=== PATIENT | male | born 1955 | race African-American/Black ===

== ENCOUNTER 2018-08-25 05:06 | Emergency (ER) | payer MEDICARE, OTHER ==
[~2018-08-25] VITALS: Ht 188 cm; Wt 86.4 kg
[2018-08-25] MEDS ORDERED: LASIX20 MG (05:12)
[2018-08-25] MEDS ORDERED: LYRICA75 MG (05:13)
[2018-08-25] MEDS ORDERED: ACETAMINOPHEN325 MG (05:13)
[2018-08-25] MEDS ORDERED: SIMETHICON40 MG/0.6 (05:13)
[2018-08-25] MEDS ORDERED: COREG25 MG (05:14)
[2018-08-25] MEDS ORDERED: NOVOLOG100 UNIT/1 (05:14)
[2018-08-25] MEDS ORDERED: CYMBALTA30 MG (05:14)
[2018-08-25] MEDS ORDERED: BAYER CHEWABLE81 MG (05:14)
[2018-08-25 05:15] VITALS: Ht 188 cm; Wt 86.4 kg
[2018-08-25] MEDS ORDERED: LANTUS (05:15)
[2018-08-25 05:36] LABS: BASOPHILS 0.1 % (0-2); EOSINOPHILS 2.2 % (0-7); HEMATOCRIT 38.4 % (42.0-54.0); HEMOGLOBIN 12.9 g/dL (13.5-17.5); IMMATURE GRANULOCYTES 0.4 % (0-5); LYMPHOCYTES 28.1 % (15-50); MCH 30.6 pg (26.0-34.0); MCHC 33.6 g/dL (31.0-37.0); MEAN PLATELET VOLUME 11.3 fL (7.4-10.4); MONOCYTES 8.9 % (2-11); NEUTROPHILS 60.3 % (40-80); PLATELET COUNT 194 10x3/uL (130-400); RBC 4.22 10x6/uL (4.20-6.10); RDW 13.2 % (11.5-14.5); WBC 10.1 10x3/uL (4.8-10.8)
[2018-08-25 06:05] LABS: ALKALINE PHOSPHATASE 247 U/L (46-116); ALT (SGPT) 20 U/L (10-68); BILIRUBIN - TOTAL 0.41 mg/dL (0.2-1.3); CALC OSMOLALITY 285 mosm/kg (275-300); CALCIUM 8.2 mg/dL (8.5-10.1); CARBON DIOXIDE 20.5 mmol/L (21.0-32.0); CHLORIDE - SERUM 104 mmol/L (98-107); GLUCOSE 258 mg/dL (74-106); POTASSIUM - SERUM 4.4 mmol/L (3.5-5.1); SODIUM 137 mmol/L (136-145); UREA NITROGEN 22 mg/dL (7-18); eGFR NON AFRICAN AMERICAN 36 mL/min (90-120)
[2018-08-25 06:20] LABS: CKMB 15.4 U/L (0.0-3.6); CREATINE KINASE 627 UL (21-232); LIPASE 209 U/L (73-393); PRO BNP 6890 pg/mL (0-125)
[2018-08-25 06:22] LABS: TROPONIN-I 0.129 ng/mL (0.000-0.060)
[2018-08-25 07:43] LABS: APPEARANCE CLEAR (CLEAR); BILIRUBIN NEGATIVE (NEGATIVE); COLOR YELLOW (YELLOW); GLUCOSE 100 mg/dL (NEGATIVE); KETONE NEGATIVE (NEGATIVE); NITRITE NEGATIVE (NEGATIVE); PROTEIN 3+ mg/dL (NEGATIVE); SPECIFIC GRAVITY 1.015 (1.005-1.020); UROBILINOGEN NORMAL (NORMAL)
[2018-08-25 07:44] LABS: UDS - AMPHET NEGATIVE QUAL (NEGATIVE); UDS - BARB NEGATIVE QUAL (NEGATIVE); UDS - BENZO NEGATIVE QUAL (NEGATIVE); UDS - COCAINE POSITIVE QUAL (NEGATIVE); UDS - OPIATE NEGATIVE QUAL (NEGATIVE); UDS - PCP NEGATIVE QUAL (NEGATIVE); UDS - THC NEGATIVE QUAL (NEGATIVE)
[2018-08-25 07:47] LABS: BACTERIA FEW /hpf (NONE SEEN); EPITHELIAL CELLS 0-5 /hpf (0-5); RED CELLS - URINE 0-5 /hpf (0-5); WHITE CELLS - URINE 0-5 /hpf (0-5)
[2018-08-25 09:17] VITALS: BP 146/95
== END 2018-08-25 09:22 | disposition other institution (70) ==
LOC: D.ER 05:06
PROVIDERS: Family Medicine
DX: I50.9 Heart failure, unspecified (principal); E11.65 Type 2 diabetes mellitus with hyperglycemia; Z79.4 Long term (current) use of insulin; Z91.14 Patient's other noncompliance with medication regimen; N28.9 Disorder of kidney and ureter, unspecified; R11.0 Nausea; I44.0 Atrioventricular block, first degree

== ENCOUNTER 2018-10-13 09:39 | Emergency (ER) | payer OTHER ==
[~2018-10-13] VITALS: Ht 188 cm; Wt 72.7 kg
--- NOTE | ~2018-10-13 | MORECARE ---
CASE MANAGEMENT DISCHARGE SUMMARY PATIENT: YULIET PADILLA UNIT: [id number] ADM DATE: AGE: 63 : 53 SEX: M ROOM/BED: AUTHOR: FIDEL LAWRENCE PHYSICIAN: REFERRING PHYSICIAN: LEANDRO RAPHAEL MD DATE OF SERVICE: 10/13/18 Discharge Plan Patient Name: YULIET PADILLA Facility: [facility]:[place] : 1955 Planned Disposition: Anticipated Discharge Date: Discharge Date: Expected LOS: 0 Initial Reviewer: [email or web address] Initial Review Date: 10/13/2018 Generated: 10/13/18 1:39 pm Patient Name: YULIET PADILLA Page 53495 at 1240 All edits/amendments must be made on the electronic document DICTATION DATE: 10/13/18 1239 CANCER PROGRAM COORDINATOR: VICKI 10/13/18 1239 RPT#: [id number] DC DATE: STATUS: REG ER [facility] [address] [place] [address] END OF REPORT
[~2018-10-13 09:39] MED LIST: ACETAMINOPHEN325 MG; BAYER CHEWABLE81 MG; COREG25 MG; CYMBALTA30 MG; LANTUS; LASIX20 MG; LEVOFLOXACIN500 MG PO; LYRICA75 MG; NORVASC5 MG PO; NOVOLOG100 UNIT/1; PLAVIX75 MG PO; SIMETHICON40 MG/0.6
[2018-10-13 09:45] VITALS: Ht 188 cm; Wt 72.7 kg
[2018-10-13 10:41] LABS: BASOPHILS 0.2 % (0-2); EOSINOPHILS 0.6 % (0-7); HEMATOCRIT 29.1 % (42.0-54.0); HEMOGLOBIN 9.5 g/dL (13.5-17.5); LYMPHOCYTES 15.2 % (15-50); MCH 24.7 pg (26.0-34.0); MCHC 32.6 g/dL (31.0-37.0); MCV 75.8 fL (80.0-100.0); MEAN PLATELET VOLUME 9.1 fL (7.4-10.4); MONOCYTES 5.6 % (2-11); NEUTROPHILS 78.4 % (40-80); RBC 3.84 10x6/uL (4.20-6.10); RDW 22.8 % (11.5-14.5); WBC 6.3 10x3/uL (4.8-10.8)
[2018-10-13 10:42] LABS: PLATELET COUNT 229 10x3/uL (130-400)
[2018-10-13 10:46] LABS: APTT 28.5 SECONDS (22.8-39.4); INR 1.18 (0.85-1.17); PROTIME 14.5 SECONDS (11.6-15.0)
[2018-10-13 10:50] LABS: ALBUMIN 1.9 g/dL (3.4-5.0); ALKALINE PHOSPHATASE 235 U/L (46-116); ALT (SGPT) 16 U/L (10-68); BILIRUBIN - TOTAL 0.98 mg/dL (0.2-1.3); CALC OSMOLALITY 279 mosm/kg (275-300); CALCIUM 7.8 mg/dL (8.5-10.1); CARBON DIOXIDE 22.8 mmol/L (21.0-32.0); CHLORIDE - SERUM 104 mmol/L (98-107); CREATININE - SERUM 1.7 mg/dL (0.6-1.3); GLUCOSE 138 mg/dL (74-106); POTASSIUM - SERUM 3.9 mmol/L (3.5-5.1); PROTEIN - SERUM 6.3 g/dL (6.4-8.2); SODIUM 137 mmol/L (136-145); UREA NITROGEN 23 mg/dL (7-18); eGFR NON AFRICAN AMERICAN 43 mL/min (90-120)
[2018-10-13 11:06] LABS: AMYLASE - SERUM 49 U/L (25-115); CKMB 10.5 U/L (0.0-3.6); CREATINE KINASE 637 UL (21-232); LIPASE 104 U/L (73-393); MAGNESIUM - SERUM 1.8 mg/dL (1.8-2.4)
[2018-10-13 11:08] LABS: TROPONIN-I 0.161 ng/mL (0.000-0.060)
[2018-10-13 14:59] LABS: CKMB 12.8 U/L (0.0-3.6); CREATINE KINASE 661 UL (21-232)
[2018-10-13 15:03] LABS: TROPONIN-I 0.151 ng/mL (0.000-0.060)
[2018-10-13 18:12] LABS: APPEARANCE CLEAR (CLEAR); BILIRUBIN NEGATIVE (NEGATIVE); COLOR YELLOW (YELLOW); GLUCOSE 100 mg/dL (NEGATIVE); KETONE NEGATIVE (NEGATIVE); NITRITE NEGATIVE (NEGATIVE); PROTEIN 3+ mg/dL (NEGATIVE); SPECIFIC GRAVITY 1.015 (1.005-1.020); UROBILINOGEN NORMAL (NORMAL)
[2018-10-13 18:14] LABS: WHITE CELLS - URINE OCC /hpf (0-5)
[2018-10-13 18:15] LABS: BACTERIA FEW /hpf (NONE SEEN)
[2018-10-13 18:28] LABS: UDS - AMPHET NEGATIVE QUAL (NEGATIVE); UDS - BARB NEGATIVE QUAL (NEGATIVE); UDS - BENZO NEGATIVE QUAL (NEGATIVE); UDS - COCAINE POSITIVE QUAL (NEGATIVE); UDS - OPIATE NEGATIVE QUAL (NEGATIVE); UDS - PCP NEGATIVE QUAL (NEGATIVE); UDS - THC NEGATIVE QUAL (NEGATIVE)
[2018-10-13 20:01] VITALS: BP 164/95
== END 2018-10-13 20:04 | disposition other institution (70) ==
LOC: D.ER 09:39
PROVIDERS: Family Medicine
DX: J18.9 Pneumonia, unspecified organism (principal); F10.129 Alcohol abuse with intoxication, unspecified; I25.10 Atherosclerotic heart disease of native coronary artery without angina pectoris; R07.9 Chest pain, unspecified; F15.10 Other stimulant abuse, uncomplicated; R51 Headache; Z86.73 Personal history of transient ischemic attack (TIA), and cerebral infarction without residual deficits; E11.9 Type 2 diabetes mellitus without complications; Z86.19 Personal history of other infectious and parasitic diseases; K74.60 Unspecified cirrhosis of liver; I50.9 Heart failure, unspecified; J44.9 Chronic obstructive pulmonary disease, unspecified; I44.0 Atrioventricular block, first degree

== ENCOUNTER 2018-11-01 08:47 | Emergency (ER) | payer OTHER ==
[~2018-11-01] VITALS: Ht 188 cm; Wt 88.6 kg
[2018-11-01 08:52] VITALS: Ht 188 cm; Wt 88.6 kg
[2018-11-01 09:09] LABS: BASOPHILS 0.3 % (0-2); EOSINOPHILS 1.1 % (0-7); HEMOGLOBIN 9.3 g/dL (13.5-17.5); IMMATURE GRANULOCYTES 0.5 % (0-5); LYMPHOCYTES 16.7 % (15-50); MCH 25.3 pg (26.0-34.0); MCHC 33.2 g/dL (31.0-37.0); MCV 76.1 fL (80.0-100.0); MEAN PLATELET VOLUME 9.6 fL (7.4-10.4); MONOCYTES 12.2 % (2-11); NEUTROPHILS 69.2 % (40-80); RBC 3.68 10x6/uL (4.20-6.10); RDW 19.7 % (11.5-14.5); WBC 6.7 10x3/uL (4.8-10.8)
[2018-11-01 09:17] LABS: PLATELET COUNT 292 10x3/uL (130-400)
[2018-11-01 09:24] LABS: ALBUMIN 2.3 g/dL (3.4-5.0); ALKALINE PHOSPHATASE 290 U/L (46-116); ALT (SGPT) 19 U/L (10-68); BILIRUBIN - TOTAL 0.65 mg/dL (0.2-1.3); CALC OSMOLALITY 283 mosm/kg (275-300); CALCIUM 8.2 mg/dL (8.5-10.1); CARBON DIOXIDE 19.6 mmol/L (21.0-32.0); CHLORIDE - SERUM 103 mmol/L (98-107); CREATININE - SERUM 1.9 mg/dL (0.6-1.3); PROTEIN - SERUM 7.5 g/dL (6.4-8.2); SODIUM 134 mmol/L (136-145); UREA NITROGEN 30 mg/dL (7-18); eGFR NON AFRICAN AMERICAN 38 mL/min (90-120)
[2018-11-01 09:25] LABS: APTT 31.4 SECONDS (22.8-39.4); INR 1.2 (0.85-1.17); PROTIME 14.7 SECONDS (11.6-15.0)
[2018-11-01 09:26] LABS: GLUCOSE 275 mg/dL (74-106); POTASSIUM - SERUM 4.9 mmol/L (3.5-5.1)
[2018-11-01 09:46] LABS: CREATINE KINASE 397 UL (21-232); MAGNESIUM - SERUM 1.9 mg/dL (1.8-2.4)
[2018-11-01 09:48] LABS: TROPONIN-I 0.073 ng/mL (0.000-0.060)
[2018-11-01 10:45] LABS: APPEARANCE HAZY (CLEAR); BILIRUBIN NEGATIVE (NEGATIVE); COLOR YELLOW (YELLOW); GLUCOSE 250 mg/dL (NEGATIVE); KETONE NEGATIVE (NEGATIVE); NITRITE NEGATIVE (NEGATIVE); PROTEIN 3+ mg/dL (NEGATIVE); UROBILINOGEN NORMAL (NORMAL)
[2018-11-01 10:49] LABS: AMORPHOUS SEDIMENT >1+ /lpf (NONE SEEN); BACTERIA MANY /hpf (NONE SEEN); EPITHELIAL CELLS 0-5 /hpf (0-5); MUCUS <1+ /lpf (NONE SEEN); WHITE CELLS - URINE 0-5 /hpf (0-5)
[2018-11-01 10:56] LABS: UDS - AMPHET NEGATIVE QUAL (NEGATIVE); UDS - BARB NEGATIVE QUAL (NEGATIVE); UDS - BENZO NEGATIVE QUAL (NEGATIVE); UDS - COCAINE NEGATIVE QUAL (NEGATIVE); UDS - OPIATE NEGATIVE QUAL (NEGATIVE); UDS - PCP NEGATIVE QUAL (NEGATIVE); UDS - THC NEGATIVE QUAL (NEGATIVE)
[2018-11-01 13:31] VITALS: BP 158/102
== END 2018-11-01 14:45 | disposition other institution (70) ==
LOC: D.ER 08:47
PROVIDERS: Family Medicine
DX: R07.9 Chest pain, unspecified (principal); I50.9 Heart failure, unspecified; Z86.73 Personal history of transient ischemic attack (TIA), and cerebral infarction without residual deficits; E11.9 Type 2 diabetes mellitus without complications; J44.9 Chronic obstructive pulmonary disease, unspecified

== ENCOUNTER 2018-11-28 06:30 | Emergency (ER) | payer OTHER ==
[~2018-11-28] VITALS: Ht 188 cm; Wt 88.6 kg
[2018-11-28 06:31] VITALS: Ht 188 cm; Wt 88.6 kg
[2018-11-28 07:14] LABS: ALBUMIN 2.7 g/dL (3.4-5.0); ALKALINE PHOSPHATASE 311 U/L (46-116); ALT (SGPT) 15 U/L (10-68); BILIRUBIN - TOTAL 2.67 mg/dL (0.2-1.3); CALC OSMOLALITY 278 mosm/kg (275-300); CALCIUM 8.7 mg/dL (8.5-10.1); CARBON DIOXIDE 20.5 mmol/L (21.0-32.0); CHLORIDE - SERUM 100 mmol/L (98-107); GLUCOSE 107 mg/dL (74-106); POTASSIUM - SERUM 3.3 mmol/L (3.5-5.1); PROTEIN - SERUM 8.2 g/dL (6.4-8.2); SODIUM 135 mmol/L (136-145); UREA NITROGEN 39 mg/dL (7-18); eGFR NON AFRICAN AMERICAN 36 mL/min (90-120)
[2018-11-28 07:17] LABS: APTT 32.3 SECONDS (22.8-39.4); INR 1.19 (0.85-1.17); PROTIME 14.6 SECONDS (11.6-15.0)
[2018-11-28 07:20] LABS: BASOPHILS 0.2 % (0-2); EOSINOPHILS 0.8 % (0-7); HEMATOCRIT 29.6 % (42.0-54.0); HEMOGLOBIN 9.9 g/dL (13.5-17.5); IMMATURE GRANULOCYTES 0.2 % (0-5); LYMPHOCYTES 14.3 % (15-50); MCH 25.3 pg (26.0-34.0); MCHC 33.4 g/dL (31.0-37.0); MCV 75.7 fL (80.0-100.0); NEUTROPHILS 71.5 % (40-80); PLATELET COUNT 320 10x3/uL (130-400); RBC 3.91 10x6/uL (4.20-6.10); RDW 18.9 % (11.5-14.5); WBC 6.6 10x3/uL (4.8-10.8)
[2018-11-28 07:29] LABS: CKMB 12.1 U/L (0.0-3.6); CREATINE KINASE 609 UL (21-232)
[2018-11-28 07:33] LABS: TROPONIN-I 0.101 ng/mL (0.000-0.060)
[2018-11-28 08:37] LABS: MAGNESIUM - SERUM 1.8 mg/dL (1.8-2.4)
[2018-11-28 13:37] VITALS: BP 151/109
== END 2018-11-28 13:30 | disposition other institution (70) ==
LOC: D.ER 06:30
PROVIDERS: Emergency Medicine; Family Medicine
DX: N28.9 Disorder of kidney and ureter, unspecified (principal); E86.0 Dehydration; D64.9 Anemia, unspecified; R79.89 Other specified abnormal findings of blood chemistry; Z86.73 Personal history of transient ischemic attack (TIA), and cerebral infarction without residual deficits; E11.9 Type 2 diabetes mellitus without complications; I50.9 Heart failure, unspecified; J44.9 Chronic obstructive pulmonary disease, unspecified

== ENCOUNTER 2019-01-24 05:21 | Emergency (ER) | payer OTHER ==
[~2019-01-24] VITALS: Ht 188 cm; Wt 81.8 kg
[2019-01-24 05:32] VITALS: Ht 188 cm; Wt 81.8 kg
[2019-01-24] MEDS ORDERED: HYDRALAZINE HCL25 MG PO (05:33)
[2019-01-24 06:23] LABS: ALBUMIN 2.4 g/dL (3.4-5.0); ALKALINE PHOSPHATASE 332 U/L (46-116); ALT (SGPT) 11 U/L (10-68); BILIRUBIN - TOTAL 2.16 mg/dL (0.2-1.3); CALC OSMOLALITY 280 mosm/kg (275-300); CALCIUM 8.2 mg/dL (8.5-10.1); CARBON DIOXIDE 23.1 mmol/L (21.0-32.0); CHLORIDE - SERUM 98 mmol/L (98-107); CREATININE - SERUM 2.2 mg/dL (0.6-1.3); POTASSIUM - SERUM 3.2 mmol/L (3.5-5.1); PROTEIN - SERUM 8.5 g/dL (6.4-8.2); SODIUM 134 mmol/L (136-145); UREA NITROGEN 33 mg/dL (7-18); eGFR NON AFRICAN AMERICAN 32 mL/min (90-120)
[2019-01-24 06:24] LABS: GLUCOSE 199 mg/dL (74-106)
[2019-01-24 06:40] LABS: CKMB 9.5 U/L (0.0-3.6); CREATINE KINASE 605 UL (21-232); MAGNESIUM - SERUM 1.6 mg/dL (1.8-2.4)
[2019-01-24 06:42] LABS: TROPONIN-I 0.173 ng/mL (0.000-0.060)
[2019-01-24 06:51] LABS: BASOPHILS 0.2 % (0-2); EOSINOPHILS 0.2 % (0-7); HEMATOCRIT 34.9 % (42.0-54.0); HEMOGLOBIN 11.7 g/dL (13.5-17.5); IMMATURE GRANULOCYTES 0.3 % (0-5); LYMPHOCYTES 5.7 % (15-50); MCH 25.7 pg (26.0-34.0); MCHC 33.5 g/dL (31.0-37.0); MCV 76.7 fL (80.0-100.0); MEAN PLATELET VOLUME 10.3 fL (7.4-10.4); MONOCYTES 8.7 % (2-11); NEUTROPHILS 84.9 % (40-80); RBC 4.55 10x6/uL (4.20-6.10); RDW 20.1 % (11.5-14.5); WBC 10.4 10x3/uL (4.8-10.8)
[2019-01-24 06:52] LABS: PLATELET COUNT 250 10x3/uL (130-400)
[2019-01-24 07:09] LABS: APTT 20.2 SECONDS (22.8-39.4); INR 1.06 (0.85-1.17); PROTIME 13.3 SECONDS (11.6-15.0)
[2019-01-24 11:34] VITALS: BP 181/117
== END 2019-01-24 12:18 | disposition other institution (70) ==
LOC: D.ER 05:21
PROVIDERS: Family Medicine
DX: J06.9 Acute upper respiratory infection, unspecified (principal); I25.10 Atherosclerotic heart disease of native coronary artery without angina pectoris; I10 Essential (primary) hypertension; I21.4 Non-ST elevation (NSTEMI) myocardial infarction

== ENCOUNTER 2019-03-02 19:46 | Inpatient (IN) | payer OTHER, MEDICARE ==
--- NOTE | ~2019-03-02 | HEMODYNAMI ---
PATIENT:YULIET PADILLA MEDICAL RECORD: [id number] : 53 [address] [id number] ADMISSION DATE: 03/03/19 Generatedon:03/05/201915:45 Patient name: YULIET PADILLA Patient #: [id number] SSN: : 1955 Date of study: 03/05/2019 Page: Of Hemodynamic Procedure Report Patient Data Patient Demographics Procedure consent was obtained First Name: YULIET Gender: Male Last Name: VALERIE : 1955 Patient #: [id number] Age: 63 year(s) Race: Black Additional ID: [id number] Contact details Address: [address] [place] [address] State: [place] City: [facility] Zip code: [address] Past Medical History Allergies: No known allergies Admission Admission Data Admission Date: 03/03/2019 Admission Time: 15:41 Room #: [facility] Lab Results Lab Result Date: 03/05/2019 Lab Result Time: 0:00 Biochemistry Name Units Result Min Max BUN mg/dl 33 --(----)-* 7 18 Creatinine mg/dl 2.3 --(----)-* 0.6 1.3 CBC Name Units Result Min Max Hematocrit % 29.8 *-(----)-- 42 54 Hemoglobin g/dl 10 *-(----)-- 13.5 17.5 Procedure Procedure Types Cath Procedure Diagnostic Procedure C LH w/Coronaries Sedation Charges Moderate Sedation up to 15 minutes Procedure Description Procedure Date Procedure Date: 03/05/2019 Procedure Start Time: 15:14 Procedure End Time: 15:44 Procedure Staff Name Function Sandeep Somers MD Performing Physician Megan Almodovar RT Monitor Eliazar Ramirez RT Scrub Ruby Ryan RN Nurse Van Hill RT Preparator Procedure Data Cath Procedure Fluoroscopy Diagnostic fluoroscopy Total fluoroscopy Time: 7 time: 7 min min Diagnostic fluoroscopy Total fluoroscopy dose: 630 dose: 630 mGy mGy Contrast Material Contrast Material Type Amount (ml) Isovue 300 74 Entry Location Entry Primary Successful Side Size Upsize Upsize Entry Closure Coker ccessful Closure Location (Fr) 1 (Fr) 2 (Fr) Remarks Device Remarks Radial Right 6 Fr Mechanical artery Short Compression Femoral Right 5 Fr Exoseal artery Estimated blood loss: 10 ml Diagnostic catheters Device Type Used For End Catheter Placement DIAGNOSTIC Hackberry 110cm 5 Procedure Fr catheter ([id number]) MULTIPACK JL 4.0 5Fr Procedure catheter DIAGNOSTIC JL 5 5Fr Procedure catheter ([id number]) MULTIPACK 3DRC 5Fr Procedure catheter MULTIPACK Pigtail 5 Fr Procedure catheter Procedure Complications No complications Procedure Medications Medication Administration Route Dosage 0.9% NaCl I.V. 100 ml/hr Oxygen etCO2 Nasal cannula 2 l/min Lidocaine 2% added to field 20 Heparin Flush Bag added to field 2 bags (1000units/500ml NS) Radial Cocktail added to field 1 syringe (Verapomil 2mg/Nitro 400mcg/Heparin 1500units) Versed I.V. 2 mg Fentanyl I.V. 50 mcg Fentanyl I.V. 50 mcg Hemodynamics Rest HGB: 10 (g/dl) Heart Rate: 73 (bpm) Pressure Samples Time Site Value (mmHg) Purpose Heart Use Rate(bpm) 15:32 LV 137/26,39 EDP 67 15:32 LV 126/2,9 Snapshot 67 Gradients Valve Time Site Site Mean SEP/DFP Peak To Heart Use 1 2 (mmHg) (sec/min) Peak Rate (mmHg) (bpm) Aortic 15:32 LV AO 67 Snapshots Pre Cath Intra NCS Post Cath Vital Signs Time Heart Resp SPO2 etCO2 NIBP (mmHg) Rhythm Pain Sedation Rate (ipm) (%) (mmHg) Status Level (bpm) 15:07:26 72 27 100 26 164/108(145) NSR 0 (11) 10(A) , No pain 15:11:50 73 28 100 16.4 160/119(150) NSR 0 (11) 10(A) , No pain 15:16:16 71 15 98 26.1 171/87(135) NSR 0 (11) 9(A) , No pain 15:20:32 68 12 99 30.5 152/96(125) NSR 0 (11) 9(A) , No pain 15:24:44 68 12 98 32.7 138/104(120) NSR 0 (11) 9(A) , No pain 15:28:58 67 12 97 33.5 150/99(119) NSR 0 (11) 9(A) , No pain 15:33:18 67 12 99 32.8 147/94(114) NSR 0 (11) 9(A) , No pain 15:37:34 66 12 99 30.5 151/101(123) NSR 0 (11) 10(A) , No pain 15:41:55 66 12 94 24.5 147/106(122) NSR 0 (11) 10(A) , No pain Medications Time Medication Route Dose Verified Delivered Reason Notes E ffectiveness by by 15:08:41 Fentanyl I.V. 50 mcg Sandeep Ruby for Yonis Connor sedation MD GARCIA 15:08:44 Versed I.V. 2 mg Sandeep Ruby for Yonis Connor sedation MD GARCIA 15:12:56 0.9% NaCl I.V. 100 Sandeep Ruby used for ml/hr Yonis Connor procedure MD GARCIA 15:13:03 Oxygen etCO2 2 l/min Sandeep Ruby used for Nasal Yonis Connor procedure cannula MD GARCIA 15:13:08 Lidocaine 2% added 20ml Sandeep Hopkins for local to vial Yonis Yonis anesthetic field MD CASTRO 15:13:13 Heparin Flush added 2 bags [facility]ep Hopkins [facility] ([facility]500[facility] field MD CASTRO NS) 15:13:20 Radial Cocktail added 1 Sandeep Hopkins used for ([facility]/Nitro field MD CASTRO 400mcg/Heparin 1500units) 15:13:49 Fentanyl I.V. 50 mcg Sandeep Ruby for Yonis Connor sedation MD GARCIArcis Log Time Note 14:35:06 [place] RT(R) sent for patient. Start room use. 14:40:01 Signed procedure consent form obtained from patient. 14:40:03 Diagnostic Cath status Elective 14:40:07 Time tracking: Regular hours (M-F 7:00 - 5:00) 14:40:11 Plan of Care:Hemodynamics will remain stable., Cardiac rhythm will remain stable., Comfort level will be maintained., Respiratory function will remain adequate., Patient/ family verbilizes understanding of procedure., Procedure tolerated without complication., Recovers from procedure without complications.. 14:40:22 H&P Date Dictated: 03/03/2019 Within 30 days and on chart., H&P Addendum completed by physician on day of procedure. (MUST COMPLETE FOR ALL OUTPATIENTS). 14:40:37 Patient allergic to No known allergies 14:41:54 Lab Result : Creatinine 2.3 mg/dl 14:41:54 Lab Result : BUN 33 mg/dl 14:41:54 Lab Result : Hemoglobin 10 g/dl 14:41:54 Lab Result : Hematocrit 29.8 % 14:57:37 Patient received from Med II to CCL 1 Alert and oriented. Tansferred to table in Supine position. 14:57:38 Warm blankets applied, and michelle hugger turned on for patient comfort. 14:57:38 Correct patient and procedure confirmed by team. 14:57:39 ECG and BP/O2 sat monitors applied to patient. 15:06:03 Vital chart was started 15:06:04 Baseline sample Acquired. 15:06:07 Rhythm: sinus rhythm 15:06:09 Full Disclosure recording started 15:06:10 Pre-procedure instructions explained to patient. 15:06:11 Pre-op teaching completed and patient verbalized understanding. 15:06:14 Family unavailable. 15:06:16 Patient NPO since Midnight. 15:06:18 Is the patient allergic to Iodine/contrast media? No. 15:06:22 Was the patient premedicated? No 15:06:39 Is patient on blood thinner?No 15:06:41 Patient diabetic? No. 15:06:45 ----Pre-sedation anethsthesia assessment.---- 15:06:47 Previous problem with sedation/anesthesia? No ? 15:06:48 Snore? Yes 15:06:50 Sleep apnea? No 15:06:51 Deviated septum? No 15:06:53 Opens mouth fully? Yes 15:06:54 Sticks out tongue? Yes 15:06:56 Airway obstruction? No ? 15:06:58 Dentures? No ? 15:07:00 Pre procedure: right dorsailis pedis pulse 2+ Normal; easily identifiable; not easily obliterated 15:07:05 Modified Laci's test Ulnar < 7 seconds 15:07:07 Patient pain scale 0/10 ?. 15:07:12 IV patent on arrival in left antecubital with 0.9% NaCl at O. 15:07:14 Lab results completed and on chart. 15:07:18 Right Radial & Right Groin area was prepped with chlora-prep and draped in sterile fashion 15:07:18 Alarms reviewed by R. N. 15:07:19 Sharps counted by scrub and verified by R.N. 15:07:20 Physician arrived 15:07:21 --------ALL STOP TIME OUT------ 15:07:21 Final Timeout: patient, procedure, and site verified with staff and physician. All members of the team are in agreement. 15:07:22 Right Radial & Right Groin site verified by team. 15:07:28 Maximum allowable Isovue 300 dose 300ml. Physician notified. (300ml for normal creatinines. For patients with creatinine of 1.7 or higher multiply weight(kg) x 5 divided by creatinine.) 15:07:32 Fire Safety Assessment: A--An alcohol-based skin anteseptic being used preoperatively., C--Open oxygen or nitrous oxide is being used., D--An ESU, laser, or fiber-optic light is being used. 15:07:36 Physical assessment completed. ASA score P 3 - A patient with severe systemic disease as per Sandeep Somers MD. 15:07:39 Sedation plan: IV Moderate Sedation Medication:Versed, Fentanyl 15:08:41 Fentanyl 50 mcg I.V. was administered by Ruby Ryan RN; for sedation; 15:08:44 Versed 2 mg I.V. was administered by Ruby Ryan RN; for sedation; 15:09:36 Use device set Radial Dx or PCI 15:09:38 ACIST Syringe (79904) opened to sterile field. 15:09:39 Bag Decanter () opened to sterile field. 15:09:40 ACIST Hand Control (30599) opened to sterile field. 15:09:40 ACIST Manifold (57492) opened to sterile field. 15:09:41 Tegaderm 4 x 4 (1626W) opened to sterile field. 15:09:42 Medline Cath Pack ([id number]) opened to sterile field. 15:09:43 DIAGNOSTIC WIRE .035 260cm J wire (112379) opened to sterile field. 15:09:43 MBrace Wrist Support (614453808) opened to sterile field. 15:09:44 SHEATH 6FR Slender (22-7474) opened to sterile field. 15:12:56 0.9% NaCl 100 ml/hr I.V. was administered by Ruby Ryan RN; used for procedure; 15:13:03 Oxygen 2 l/min etCO2 Nasal cannula was administered by Ruby Ryan RN; used for procedure; 15:13:08 Lidocaine 2% 20ml vial added to field was administered by Sandeep Somers MD; for local anesthetic; 15:13:13 Heparin Flush Bag (1000units/500ml NS) 2 bags added to field was administered by Sandeep Somers MD; used for procedure; 15:13:20 Radial Cocktail (Verapomil 2mg/Nitro 400mcg/Heparin 1500units) 1 syringe added to field was administered by Sandeep Somers MD; used for procedure; 15:13:49 Fentanyl 50 mcg I.V. was administered by Ruby Ryan RN; for sedation; 15:14:35 Procedure started. 15:14:44 Local anesthetic to right radial artery with Lidocaine 2% by Sandeep Somers MD.INITIAL ACCESS ONLY 15:15:32 A 6 Fr Short sheath was inserted into the Right Radial artery 15:16:05 A DIAGNOSTIC Hackberry 110cm 5 Fr catheter (139087) was advanced over the wire and used for Procedure. 15:18:56 GLIDE WIRE ANGLE 260cm (NM0806) opened to sterile field. 15:19:37 TORQUE DEVICE PLASTIC .038 ( TD01) opened to sterile field. 15:22:44 CATHETER REMOVED. UNABLE TO ADVANCE AROUND AORTA 15:22:56 SHEATH 5FR Lipscomb (XOV512) opened to sterile field. 15:23:04 Use device set Multipack Set 15:23:07 DIAGNOSTIC Multipack 5Fr catheter set ([id number]) opened to sterile field. 15:23:35 Local anesthetic to right femoral artery with Lidocaine 2% by Sandeep Somers MD.ADDITIONAL ACCESS 15:25:19 A 5 Fr sheath was inserted into the Right Femoral artery 15:25:25 A MULTIPACK JL 4.0 5Fr catheter was advanced over the wire and used for Procedure. 15:27:16 Catheter removed. 15:27:32 UNABLE TO ENGAGE LCA 15:28:03 A DIAGNOSTIC JL 5 5Fr catheter ([id number]) was advanced over the wire and used for Procedure. 15:29:09 LCA angiography performed. 15:29:11 Catheter removed. 15:29:42 A MULTIPACK 3DRC 5Fr catheter was advanced over the wire and used for Procedure. 15:30:17 RCA angiography performed. 15:30:39 Catheter removed. 15:30:44 A MULTIPACK Pigtail 5 Fr catheter was advanced over the wire and used for Procedure. 15:31:32 LV gram done using MEJIA 15::35 Injector settings: Ml/sec: 10, Volume: 20, 15:32:33 LV hemodynamics recorded. 15:32:39 EF : 20 % 15:32:49 Catheter removed. 15:33:08 TR BAND Standard ([id number]) opened to sterile field. 15:33:10 EXOSEAL 5Fr (EX500) opened to sterile field. 15:33:48 Sheath removed intact; hemostasis achieved with Exoseal to the Right Femoral artery. 15:33:54 Procedure ended.(Physican Out) 15:35:02 Fluoroscopy time 07.00 minutes. 15:35:57 Fluoroscopy dose: 630 mGy 15:35:57 Flurop Dose total: 630 15:36:29 Contrast amount:Isovue 300 74ml. 15:36:31 Sharps counted by scrub and verified by R.N. 15:36:35 Post-op/insertion site Right Femoral artery dressed using a 4 x 4 and Tegaderm. 15:37:17 Sheath removed intact; hemostasis achieved with Mechanical Compression to the Right Radial artery. 15:38:51 TR band inflated with 10cc of air. 15:39:11 Post-procedure physical assessment completed. ASA score P 3 - A patient with severe systemic disease as per Sandeep Somers MD. 15:39:31 Post procedure rhythm: sinus bradycardia 15:39:32 Estimated blood loss: 10 ml 15:39:34 Post procedure instruction explained to patient.Patient verbalizes understanding. 15:39:34 Patient needs reinforcement of post procedure teaching. 15:40:02 Procedure type changed to Cath procedure, Diagnostic procedure, LHC, LHC w/Coronaries, Sedation Charges, Moderate Sedation up to 15 minutes 15:40:26 Procedure and supply charges have been captured, reviewed, submitted and are correct. 15:40:29 Procedure Complication : No complications 15:43:54 Vital chart was stopped 15:43:55 See physician's report for complete and final results. 15:43:57 Report given to [facility]. 15:43:59 Patient transfered to [facility] with Bed. 15:44:01 Procedure ended. 15:44:01 Full Disclosure recording stopped 15:44:04 End room use (Document Last) Device Usage Item Name Manufacture Quantity Catalog Hospital Part Current Minimal Lot# / Number Charge Number Stock Stock Serial# Code ACIST Acist 1 05671 072119 945066 784360 20 Syringe Medical (05989) Systems Inc Bag Microtek 1 355565 77845 277927 5 Decanter Medical Inc. () ACIST Hand Acist 1 41466 673467 013412 243278 5 Control Medical (55538) Systems Inc ACIST Acist 1 80976 687091 983701 288765 5 Manifold Medical (83143) Systems Inc Tegaderm 4 3M 1 1626W 393015 373250 115438 5 x 4 (1626W) Medline Medline 1 [id number] 199707 69193 667895 5 Cath Pack ([id number]) DIAGNOSTIC St Alec 1 948930 868961 961929 125347 30 WIRE .035 260cm J wire (574636) MBrace Advanced 1 140-0250-00 774665 58391 591605 5 Wrist Vascular Support Dynamics ([id number]) SHEATH 6FR Terumo 1 [id number] 737160 534522 096602 5 Slender (80-1060) DIAGNOSTIC Terumo 1 40-5013 281620 267758 600021 5 Hackberry 110cm 5 Fr catheter (906926) GLIDE WIRE Terumo 1 ED8158 205980 471125 932790 5 ANGLE 260cm (VS0908) TORQUE Freistatt 1 TD01 840863 719338 173693 5 DEVICE Scientific PLASTIC .038 ( TD01) SHEATH 5FR Terumo 1 CAF822 802246 410592 733195 5 Lipscomb (HSF730) DIAGNOSTIC Cardinal 1 DF0355 885505 82051 360035 30 Vocalytics 5Fr catheter set (OR8123) MULTIPACK Cardinal 1 299754 5 JL 4.0 5Fr Health catheter DIAGNOSTIC Cardinal 1 311342N 080608 971973 976645 5 JL 5 5Fr Health catheter (552733L) MULTIPACK Cardinal 1 076824 5 3DRC 5Fr Health catheter MULTIPACK Cardinal 1 671082 5 Pigtail 5 Health Fr catheter TR BAND Terumo 1 [id number] 753461 247257 265573 40 Standard ([id number]) EXOSEAL 5Fr Cardinal 1 EX500 116037 534263 947341 10 (EX500) Health Signature Audit [place] Stage Time Signature Unsigned Intra-Procedure 03/05/2019 Megan Almodovar 3:45:39 PM RT(R) Signatures Monitor : Megan Almodovar Signature : RT Date : Time : [id number] [place] [address]
[~2019-03-02 19:46] MED LIST changes: +COREG12.5 MG PO; -COREG25 MG; +HYDRALAZINE HCL25 MG PO; -LANTUS; +LANTUS SQ; -NOVOLOG100 UNIT/1; +NOVOLOG100 UNIT/1 SC
[2019-03-02] MEDS ORDERED: CYMBALTA30 MG PO (20:07)
[2019-03-02 20:44] LABS: BASOPHILS 0.2 % (0-2); HEMATOCRIT 30.3 % (42.0-54.0); HEMOGLOBIN 10.5 g/dL (13.5-17.5); IMMATURE GRANULOCYTES 0.2 % (0-5); LYMPHOCYTES 30.5 % (15-50); MCH 26.3 pg (26.0-34.0); MCHC 34.7 g/dL (31.0-37.0); MCV 75.8 fL (80.0-100.0); MEAN PLATELET VOLUME 9.3 fL (7.4-10.4); MONOCYTES 11.9 % (2-11); NEUTROPHILS 56.2 % (40-80); PLATELET COUNT 220 10x3/uL (130-400); RDW 19.5 % (11.5-14.5); WBC 6.1 10x3/uL (4.8-10.8)
[2019-03-02 20:57] LABS: APTT 30.4 SECONDS (22.8-39.4); INR 1.13 (0.85-1.17)
[2019-03-02 21:00] VITALS: BP 162/101
[2019-03-02 21:02] LABS: ALBUMIN 2.2 g/dL (3.4-5.0); ALKALINE PHOSPHATASE 292 U/L (46-116); ALT (SGPT) 18 U/L (10-68); CALC OSMOLALITY 284 mosm/kg (275-300); CARBON DIOXIDE 22.8 mmol/L (21.0-32.0); CHLORIDE - SERUM 106 mmol/L (98-107); CREATININE - SERUM 2.1 mg/dL (0.6-1.3); POTASSIUM - SERUM 3.4 mmol/L (3.5-5.1); PROTEIN - SERUM 7.7 g/dL (6.4-8.2); SODIUM 139 mmol/L (136-145); UREA NITROGEN 26 mg/dL (7-18); eGFR NON AFRICAN AMERICAN 34 mL/min (90-120)
[2019-03-02 21:07] LABS: GLUCOSE 143 mg/dL (74-106)
[2019-03-02 21:17] LABS: CKMB 12.7 U/L (0.0-3.6); CREATINE KINASE 595 UL (21-232); PRO BNP 3391 pg/mL (0-125)
[2019-03-02 22:02] VITALS: BP 170/107
[2019-03-02 23:10] VITALS: BP 160/98
--- NOTE | 2019-03-02 23:46 | NUR ---
PT ARRIVED TO FLOOR BY WHEELCHAIR, REPORT TAKEN FROM ISSAC ESCOBAR RN. ANSWERS QUESTIONS APPROPRIATELY. INTRODUCED SELF TO PT AND PROVIDED PT WITH SHABBIRBEAU. DENIES FURTHER NEEDS AT THIS TIME. TELEMETRY ESTABLISHED. CALL LIGHT IN REACH. WILL CTM.
[2019-03-02] MEDS ORDERED: LYRICA75 MG PO (23:59)
[2019-03-03 00:03] LABS: APPEARANCE CLEAR (CLEAR); BILIRUBIN NEGATIVE (NEGATIVE); COLOR YELLOW (YELLOW); GLUCOSE 50 mg/dL (NEGATIVE); KETONE NEGATIVE (NEGATIVE); NITRITE NEGATIVE (NEGATIVE); PROTEIN 2+ mg/dL (NEGATIVE); RED CELLS - URINE 25-50 /hpf (0-5); SPECIFIC GRAVITY 1.015 (1.005-1.020); UROBILINOGEN NORMAL (NORMAL); WHITE CELLS - URINE RARE /hpf (0-5)
[2019-03-03 00:14] LABS: UDS - AMPHET NEGATIVE QUAL (NEGATIVE); UDS - BARB NEGATIVE QUAL (NEGATIVE); UDS - BENZO NEGATIVE QUAL (NEGATIVE); UDS - COCAINE NEGATIVE QUAL (NEGATIVE); UDS - OPIATE POSITIVE QUAL (NEGATIVE); UDS - PCP NEGATIVE QUAL (NEGATIVE); UDS - THC NEGATIVE QUAL (NEGATIVE)
[2019-03-03 00:41] VITALS: BP 188/127; BMI 23.3
--- NOTE | 2019-03-03 00:47 | NUR ---
RN ADMISSIN ASSESSMENT COMPLETED. PT DENIED CECILLE DISCOMFORT. IV TO RAC SL. LUNGS DIMINISHED IN BASES BILAT. SR PER CM HR 95. 1+ EDEMA TO FEET. BP ELEVATED. BP MED GIVEN PER Criss CHEEMA LPN. CALL LIGHT WITHIN REACH.
--- NOTE | 2019-03-03 01:01 | NUR ---
ADMINISTERED ORDERED HYDRALAZINE FOR BLOOD PRESSURE OF 188/128, BP NOW CURRENTLY 118/65.
[2019-03-03 01:02] VITALS: BP 118/65
--- NOTE | 2019-03-03 04:40 | NUR ---
PT REQUESTED TO BE SENT TO THE [facility], STATED HE WAS FIGHTING FOR HIS LIFE. I ADVISED HIM THAT HE WAS ON TELEMETRY AND HIS HEART RATE WAS BEING MONITORED. HE THEN REQUESTED TO HAVE HIS BLOOD SUGAR CHECKED, WHICH I THEN CHECKED HIS BLOOD SUGAR. IT WAS 187. THE PT THEN STATED HE WANTED OXYGEN, I STATED HIS VITALS WERE STABLE. BUT I WOULD PLACE HIM ON OXYGEN IF HE FELT THAT HE NEEDED IT. I THEN PLACED THE NASAL CANNULA ON THE PT'S NOSE AND TURNED IT TO TWO LITERS. THE PT THEN REQUESTED TO BE SENT TO THE [facility], TO WHICH I TOLD HIM CASE MANAGEMENT WOULD ARRIVE IN THE MORNING AND WOULD BE ADVISED OF HIS DESIRE TO BE TRANSFERRED. THE PT THEN PLACED THE BLANKET OVER HIS HEAD AND TURNED ONTO HIS RIGHT SIDE.
--- NOTE | 2019-03-03 04:56 | NUR ---
PT STATES HE WANTS TO LEAVE AMA, DR OCHOA HAS BEEN NOTIFIED. PT REFUSES TO SIGN AMA PAPERWORK.
--- NOTE | 2019-03-03 05:10 | NUR ---
PT NOW STATES HE WILL NOT LEAVE AMA IF HE CAN RECEIVE PAIN MEDICATION FOR HIS FEET AND LEGS.
--- NOTE | 2019-03-03 05:42 | NUR ---
IV RESITED IN LEFT FOREARM, 22 GAUGE, IV HYDRALAZINE ADMINISTERED ORDERED BY VIOLETTA SUE RN.
[2019-03-03 06:01] VITALS: BP 162/49
[2019-03-03 06:13] LABS: CREATINE KINASE 544 UL (21-232)
[2019-03-03 06:15] LABS: CKMB 10.9 U/L (0.0-3.6); TROPONIN-I 0.145 ng/mL (0.000-0.060)
[2019-03-03 09:16] LABS: ALBUMIN 2.2 g/dL (3.4-5.0); ANION GAP 16.5 mmol/L (8-16); BILIRUBIN - TOTAL 0.54 mg/dL (0.2-1.3); CALCIUM 8.4 mg/dL (8.5-10.1); CARBON DIOXIDE 21.8 mmol/L (21.0-32.0); CREATININE - SERUM 2.4 mg/dL (0.6-1.3); POTASSIUM - SERUM 3.3 mmol/L (3.5-5.1); PROTEIN - SERUM 7.7 g/dL (6.4-8.2)
[2019-03-03 09:24] LABS: BASOPHILS 0.3 % (0-2); EOSINOPHILS 0.2 % (0-7); HEMATOCRIT 32.4 % (42.0-54.0); HEMOGLOBIN 11.1 g/dL (13.5-17.5); IMMATURE GRANULOCYTES 0.2 % (0-5); LYMPHOCYTES 15.9 % (15-50); MCH 26.2 pg (26.0-34.0); MCHC 34.3 g/dL (31.0-37.0); MCV 76.6 fL (80.0-100.0); MEAN PLATELET VOLUME 9.6 fL (7.4-10.4); NEUTROPHILS 76.4 % (40-80); PLATELET COUNT 217 10x3/uL (130-400); RBC 4.23 10x6/uL (4.20-6.10); RDW 19.9 % (11.5-14.5); WBC 6.4 10x3/uL (4.8-10.8)
--- NOTE | 2019-03-03 09:30 | NUR ---
RESTING IN BED. LUIS JEFFREY. CONSENTS FOR PASSPORT SUPPORT MANAGER SIGNED ON CHART. REFUSE RECOVERY ASSISTANT.
[2019-03-03 09:59] LABS: CKMB 17.7 U/L (0.0-3.6); CREATINE KINASE 674 UL (21-232)
[2019-03-03 10:00] LABS: TROPONIN-I 0.138 ng/mL (0.000-0.060)
[2019-03-03 11:20] VITALS: BP 201/106
[2019-03-03 12:59] VITALS: BMI 23.2
--- NOTE | 2019-03-03 13:30 | NUR ---
SLEEPING IN BED. AROUSE TO STIMULI. BP-201/106. NOTIFY . CLONIDINE 0.1mg PO Q4PRN ORDERED VIA TELEPHONE. DENIES ANY OTHER NEEDS. LUNCH TRAY ORDERED. CONTINUE PLAN OF CARE AND SAFETY PRECAUTIONS.
[2019-03-03 14:41] VITALS: BP 163/97
[2019-03-03 15:37] LABS: CKMB 10.7 U/L (0.0-3.6); CREATINE KINASE 512 UL (21-232)
[2019-03-03 15:43] LABS: TROPONIN-I 0.187 ng/mL (0.000-0.060)
--- NOTE | 2019-03-03 19:20 | NUR ---
AROUSES EASILY AT THIS TIME AND DENIES NEEDS...REFUSES TO PUT TELEMETRY BACK ON. LCTA BED IS LOW AND LOCKED AND CALL LIGHT IS IN REACH
--- NOTE | 2019-03-03 20:21 | NUR ---
GLUCOSE 56 PT ALERT AND OX4 JUICE AND WAFFERS GIVEN AT THIS TIME...SKIN DRY DENIES ANY OTHER NEEDS
[2019-03-03 20:55] LABS: CKMB 8.4 U/L (0.0-3.6); CREATINE KINASE 408 UL (21-232)
[2019-03-03 20:58] LABS: TROPONIN-I 0.171 ng/mL (0.000-0.060)
[2019-03-03 21:48] VITALS: BP 169/102
[2019-03-04] VITALS (7 sets, daily range): BP systolic 121–198; BP diastolic 78–117
--- NOTE | 2019-03-04 03:42 | NUR ---
I have reviewed this patient and I concur with the Shift Assessment completed by the Licensed Practical Nurse today this shift.
[2019-03-04 06:26] LABS: ALBUMIN 2.1 g/dL (3.4-5.0); ANION GAP 15.1 mmol/L (8-16); BILIRUBIN - TOTAL 1.18 mg/dL (0.2-1.3); CALCIUM 8.3 mg/dL (8.5-10.1); CARBON DIOXIDE 22.5 mmol/L (21.0-32.0); CREATININE - SERUM 2.4 mg/dL (0.6-1.3); POTASSIUM - SERUM 3.6 mmol/L (3.5-5.1); PROTEIN - SERUM 7.2 g/dL (6.4-8.2)
[2019-03-04 06:28] LABS: BASOPHILS 0.2 % (0-2); EOSINOPHILS 1.5 % (0-7); HEMATOCRIT 29.9 % (42.0-54.0); HEMOGLOBIN 10.2 g/dL (13.5-17.5); IMMATURE GRANULOCYTES 0.2 % (0-5); LYMPHOCYTES 24.5 % (15-50); MCH 26.1 pg (26.0-34.0); MCHC 34.1 g/dL (31.0-37.0); MCV 76.5 fL (80.0-100.0); MONOCYTES 9.2 % (2-11); NEUTROPHILS 64.4 % (40-80); PLATELET COUNT 216 10x3/uL (130-400); RBC 3.91 10x6/uL (4.20-6.10); RDW 20.1 % (11.5-14.5)
--- NOTE | 2019-03-04 14:00 | NUR ---
ALERT AND ORIENTED X4. RESTING IN BED. SINUS RHYTHM 75 ON TELEMETRY. DENIES ANY NEEDS. CONTINUE PLAN OF CARE AND SAFETY PRECAUTIONS.
--- NOTE | 2019-03-04 19:20 | NUR ---
AWAKE AND ALERT TALKING WITH VISITOR IN HIS ROOM. LCTA AND SKIN WARM AND DRY. BED IS LOCKED AND LOW AND CALL LIGHT NOW IN REACH OF PT.
--- NOTE | 2019-03-05 04:06 | NUR ---
I have reviewed this patient and I concur with the Shift Assessment completed by the Licensed Practical Nurse today this shift.
[2019-03-05 06:06] LABS: BILIRUBIN - TOTAL 0.49 mg/dL (0.2-1.3); CALCIUM 8.1 mg/dL (8.5-10.1); CARBON DIOXIDE 23.7 mmol/L (21.0-32.0); CREATININE - SERUM 2.3 mg/dL (0.6-1.3); POTASSIUM - SERUM 3.7 mmol/L (3.5-5.1); PROTEIN - SERUM 6.9 g/dL (6.4-8.2)
[2019-03-05 06:16] VITALS: BP 127/87
[2019-03-05 06:24] LABS: BASOPHILS 0.2 % (0-2); EOSINOPHILS 2.6 % (0-7); HEMATOCRIT 29.8 % (42.0-54.0); IMMATURE GRANULOCYTES 0.2 % (0-5); LYMPHOCYTES 28.9 % (15-50); MCHC 33.6 g/dL (31.0-37.0); MCV 77.4 fL (80.0-100.0); MEAN PLATELET VOLUME 9.6 fL (7.4-10.4); NEUTROPHILS 60.1 % (40-80); PLATELET COUNT 180 10x3/uL (130-400); RBC 3.85 10x6/uL (4.20-6.10); RDW 20.4 % (11.5-14.5); WBC 5.9 10x3/uL (4.8-10.8)
--- NOTE | 2019-03-05 07:30 | NUR ---
AM ROUNDS COMPLETED. INTRODUCED MYSELF TO PT PRIMARY RN FOR TODAYS SHIFT. PT SITTING UP IN BED RESTING QUIETLY WAITING ON BREAKFAST. SHIFT ASSESSMENT COMPLETED. PT DENIES ANY CURRENT PAIN OR NEEDS AT THIS TIME. CL IN REACH, BED IN LOWEST, SIDE RAILS X2. WILL CPOC.
[2019-03-05 08:24] VITALS: BP 146/92
--- NOTE | 2019-03-05 10:38 | NUR ---
PT C/O NOT BEING ABLE TO BREATH. STAT VITALS OBTAINED AND STABLE. PULSE OX 100% ON NC @2L. LUNGS ARE CTA THROUGHOUT ALL LOBES. NONLABORED BREATHING. PT JUST STATES ITS "HARD" WHEN HE TAKES A DEEP BREATH. MAY BE R/T HIS HEART AND HE IS NPO FOR HEART CATH. WILL CTM NO CURRENT NEEDS.
[2019-03-05 11:36] VITALS: BP 152/98
--- NOTE | 2019-03-05 12:14 | NUR ---
FSBS 274 NO COVERAGE GIVEN R/T PT BEING NPO FOR HUMAN RESOURCES BENEFITS SPECIALIST. PT VERBALIZED UNDERSTANDING AND DENIES ANY CURRENT NEEDS. WILL CTM.
--- NOTE | 2019-03-05 14:10 | NUR ---
MOWER MECHANIC CALLED TO PRE-OP PT. PRE-OP MEDICATIONS GIVEN. PT IS READY TO GO AWAITING THEIR ARRIVAL. NO CURRENT NEEDS.
--- NOTE | 2019-03-05 14:53 | NUR ---
NEW CONSENTS OBTAINED AND PLACED IN CHART FOR CARDIAC CATHERIZATION OLD CONSENTS WERE INCORRECT AND OUTDATED. DISCUSSED WITH PT AND HE VERBALIZED UNDERSTANDING AND IS READY TO GO. CATH TEAM AT BEDSIDE NOW, NO CURRENT NEEDS.
[2019-03-05 15:23] VITALS: BP 155/106
--- NOTE | 2019-03-05 16:18 | NUR ---
PT BACK FROM PROCEDURE VERY SLEEPY BUT EASILY AWAKENS. TR BAND TO R.WRIST CDI NO S/S OF HEMATOMA OR BLEEDING NOTED. PT ALSO HAS A RIGHT GROIN DRSG THAT IS CDI NO S/S OF HEMATOMA OR BLEEDING NOTED. PT IS TO LAY FLAT FOR 2HRS. PERIPHERAL PULSES INTACT. VSS AND BEING MONITERED PER POST PROCEDURE PROTOCOL. TELEMETRY RE-APPLIED. NS INFUSING @200ML/HR ORDERED ALONG WITH BANANA BAG @75ML/HR. NO CURRENT NEEDS. WILL CTM.
--- NOTE | 2019-03-05 16:44 | NUR ---
R.WRIST TR BAND REMAINS CDI NO S/S OF HEMATOMA OR BLEEDING. R.GROIN DRSG REMAINS CDI WITHOUT ANY S/S OF BLEEDING OR HEMATOMA NOTED. VSS AND STILL BEING MONITERED. PT REMAINS LYING FLAT RESTING QUIETLY. WILL CPOC.
--- NOTE | 2019-03-05 18:18 | NUR ---
R.WRIST TR BAND REMAINS CDI NO S/S OF BLEEDING OR HEMATOMA NOTED. R.GROIN DRSG CDI NO S/S OF HEMATOMA OR BLEEDING NOTED. PT IS STILL VERY DROWSY AND WANTING TO REST MORE. VSS. NO CURRENT NEEDS. WILL CTM.
--- NOTE | 2019-03-05 18:45 | NUR ---
REMOVED AIR FROM R.WRIST TR BAND AND NO BLEEDING NOTED. PTS 2HR LAY IS COMPLETED HOWEVER PT STILL VERY DROWSY AND SEDATED, WILL ALLOW HIM TO REST LONGER AND CTM. VSS. CL IN REACH. WILL CPOC. R.GROIN DRSG REMAINS CDI NO S/S OF BLEEDING OR HEMATOMA NOTED.
--- NOTE | 2019-03-05 19:20 | NUR ---
PATIENT LAYING IN BED. EYES CLOSED, CHEST RISING AND FALLING. TR BAND TO RIGHT WRIST, RIGHT GROIN WITH DRESSING INTACT. NO DISTRESS NOTED.
[2019-03-05 20:00] VITALS: BP 141/82
[2019-03-06] VITALS: BP 139/83
--- NOTE | 2019-03-06 02:19 | NUR ---
PATIENT LAYING IN BED. EYES CLOSED, CHEST RISING AND FALLING. NO DISTRESS NOTED.
--- NOTE | 2019-03-06 03:14 | NUR ---
PATIENT LAYING IN BED, EYES CLOSED, CHEST RISING AND FALLING.
[2019-03-06 04:00] VITALS: BP 145/97
--- NOTE | 2019-03-06 05:12 | NUR ---
I have reviewed this patient and I concur with the Shift Assessment completed by the Licensed Practical Nurse today this shift.
--- NOTE | 2019-03-06 06:06 | NUR ---
PT PULLED IV OUT. TIP OF IV INTACT. ATTEMPT TO START NEW IV X3 WITH NO SUCCESS.
--- NOTE | 2019-03-06 06:38 | NUR ---
PATIENT LAYING IN BED, EYES CLOSED, CHEST RISING AND FALLING.
[2019-03-06 07:13] LABS: BASOPHILS 0.3 % (0-2); EOSINOPHILS 2.1 % (0-7); HEMATOCRIT 29.6 % (42.0-54.0); HEMOGLOBIN 9.9 g/dL (13.5-17.5); IMMATURE GRANULOCYTES 0.2 % (0-5); LYMPHOCYTES 16.9 % (15-50); MCH 26.2 pg (26.0-34.0); MCHC 33.4 g/dL (31.0-37.0); MCV 78.3 fL (80.0-100.0); MEAN PLATELET VOLUME 9.9 fL (7.4-10.4); MONOCYTES 9.1 % (2-11); NEUTROPHILS 71.4 % (40-80); PLATELET COUNT 169 10x3/uL (130-400); RBC 3.78 10x6/uL (4.20-6.10); RDW 20.5 % (11.5-14.5); WBC 6.3 10x3/uL (4.8-10.8)
[2019-03-06 07:17] LABS: ALBUMIN 2.3 g/dL (3.4-5.0); ANION GAP 15.3 mmol/L (8-16); BILIRUBIN - TOTAL 0.64 mg/dL (0.2-1.3); CALCIUM 8.2 mg/dL (8.5-10.1); CARBON DIOXIDE 20.1 mmol/L (21.0-32.0); CREATININE - SERUM 2.2 mg/dL (0.6-1.3); PROTEIN - SERUM 7.6 g/dL (6.4-8.2)
[2019-03-06 07:18] LABS: POTASSIUM - SERUM 4.4 mmol/L (3.5-5.1)
[2019-03-06 08:00] VITALS: BP 157/94
[2019-03-06 12:11] VITALS: BP 115/82
--- NOTE | 2019-03-06 12:39 | NUR ---
I CONCUR WITH THE ASSESSMENT PERFORMED BY SERGIO ROSENBERG.
--- NOTE | 2019-03-06 13:02 | MORECARE ---
CASE MANAGEMENT DISCHARGE SUMMARY PATIENT: YULIET PADILLA UNIT: [id number] ADM DATE: 03/03/19 AGE: 63 : 54 SEX: M ROOM/BED: D.[facility] AUTHOR: FIDEL LAWRENCE PHYSICIAN: REFERRING PHYSICIAN: KORI OCHOA MD DATE OF SERVICE: 03/06/19 Discharge Plan Patient Name: YULIET PADILLA Facility: [facility]:[place] : 1955 Planned Disposition: Home Anticipated Discharge Date: 03/06/19 Discharge Date: Expected LOS: 3 Initial Reviewer: [id number] Initial Review Date: 03/06/2019 Generated: 03/06/19 2:02 pm DCPIA - Discharge Planning Initial Assessment Updated by [email or web address]: Stefano Lee on 03/06/19 1:00 pm * Is the patient Alert and Oriented? Yes * How many steps to enter\exit or inside your home? * PCP [facility] * Pharmacy [place] MAIL ORDER NO LOCAL PHARMACY * Preadmission Environment Home with Family * ADLs Independent * Equipment Cane Shower Chair Walker * Other Equipment [employer] - MEDICAL EQUIPMENT PROVIDER * List name and contact numbers for known caregivers / representatives who currently or will assist patient after discharge: EVY ANGELES, SISTER, * Verbal permission to speak to the caregivers and representatives has been obtained from the patient. Yes * Community resources currently utilized None * Please name any agencies selected above. NONE * Additional services required to return to the preadmission environment? No * Can the patient safely return to the preadmission environment? Yes * Has this patient been hospitalized within the prior 30 days at any hospital? No Coverage Notice Reviewer: [id number] - Stefano Lee Notice Issued Date-Time: 03/06/2019 9:45 Notice Type: IM Discharge Notice Notice Delivered To: Patient Relationship to Patient: Raker Buffing Wheel Name: Delivery Method: HAND - Hand Delivered Tia Days: Prior Verbal Notification: Recipient Understood Notice: Yes Recipient Signature: Yes Med Rec Note Co-signed by Attending: Coverage Notice Comment: Patient Name: YULIET PADILLA Page [phone] at 1302 All edits/amendments must be made on the electronic document DICTATION DATE: 03/06/19 1302 ECOLOGICAL ECONOMIST: VICKI 03/06/19 1302 RPT#: [id number] DC DATE: STATUS: ADM IN [facility] [address] [place] [address] END OF REPORT
--- NOTE | 2019-03-06 13:10 | MORECARE ---
CASE MANAGEMENT DISCHARGE SUMMARY PATIENT: YULIET PADILLA UNIT: [id number] ADM DATE: 03/03/19 AGE: 63 : 53 SEX: M ROOM/BED: D.2111 AUTHOR: HOWARDDOC PHYSICIAN: REFERRING PHYSICIAN: KORI OCHOA MD DATE OF SERVICE: 03/06/19 Discharge Plan Patient Name: YULIET PADILLA Facility: [facility]:[place] : 1955 Planned Disposition: Home Anticipated Discharge Date: 03/06/19 Discharge Date: Expected LOS: 3 Initial Reviewer: [id number] Initial Review Date: 03/06/2019 Generated: 03/06/19 2:10 pm Comments DCP- Discharge Planning Updated by [email or web address]: Stefano Lee on 03/06/19 12:[address] Patient Name: YULIET PADILLA Admission Status: ER Accout number: [id number] Admission Date: 03-03-2019 : 1955 Admission Diagnosis:SHORTNESS OF BREATH Attending: KORI OCHOA Current LOS: 3 Anticipated DC Date: 03-06-2019 Planned Disposition: Home Primary Insurance: [employer] Discharge Planning Comments: CM MET WITH PT IN ROOM TO DISCUSS DISCHARGE PLANNING AND NEEDS. PT REPORTS LIVING AT HOME INDEPENDENTLY WITH HIS SISTER. PT HAS CANE, SHOWER CHAIR AND WALKER [place]. [place]. PT ITIALLY STATES HE DIDN'T KNOW IF THE [facility] WAS NOTIFIED UPON HIS ADMISSION AND WOULD TRANSFER "IF NECESSARY". CHART REVIEW INDICATED PT REFUSED TRANSFER IN ER, CM ASKED PT ABOUT TRANSFER TO [facility] AGAIN, PT ACKNOWLEDGED HE DID REFUSE AND DOES NOT WANT TO TRANSFER TO THE [facility] NOW. CM EXPLAINED PT HAS MEDICARE A ONLY AND WOULD HAVE COPAY. PT REPORTED UNDERSTANDING. PT HAS NO OUTSIDE SERVICES ASSISTING IN THE HOME. CM DISCUSSED AVAILABILITY OF HOME HEALTH, REHAB SERVICES AND MEDICAL EQUIPMENT. PT DENIES DISCHARGE NEEDS, REPORTS HIS SISTER WILL PICK HIM UP FOR DISCHARGE HOME. IMPORTANT MESSAGE FROM MEDICARE PROVIDED AND EXPLAINED. SUPERVISOR COOK ROOM NURSE NOTIFIED. Licensing Analyst: Stefano Lee DCPIA - Discharge Planning Initial Assessment Updated by [id number]: Stefano Lee on 03/06/19 1:00 pm * Is the patient Alert and Oriented? Yes * How many steps to enter\\exit or inside your home? * PCP [facility] * Pharmacy [place] MA[facility] ORDER NO LOCAL PHARMACY * Preadmission Environment Home with Family * ADLs Independent * Equipment Cane Shower Chair Walker * Other Equipment [employer] - MEDICAL EQUIPMENT PROVIDER * List name and contact numbers for known caregivers / representatives who currently or will assist patient after discharge: EVY ANGELES, , * Verbal permission to speak to the caregivers and representatives has been obtained from the patient. Yes * Community resources currently utilized None * Please name any agencies selected above. NONE * Additional services required to return to the preadmission environment? No * Can the patient safely return to the preadmission environment? Yes * Has this patient been hospitalized within the prior 30 days at any hospital? No Coverage Notice Reviewer: [id number] Sondra Lee Notice Issued Date-Time: 03/06/2019 9:45 Notice Type: IM Discharge Notice Notice Delivered To: Patient Relationship to Patient: Sephora Product Consultant Name: Delivery Method: HAND - Hand Delivered Tia Days: Prior Verbal Notification: Recipient Understood Notice: Yes Recipient Signature: Yes Med Rec Note Co-signed by Attending: Coverage Notice Comment: Last DP export: 03/06/19 12:02 p Patient Name: YULIET PADILLA Page [phone] at 1310 All edits/amendments must be made on the electronic document DICTATION DATE: 03/06/19 1310 LABEL DRIER: VICKI 03/06/19 1310 RPT#: [id number] DC DATE: STATUS: ADM IN [facility] [address] [place] [address] END OF REPORT
--- NOTE | 2019-03-06 13:36 | MORECARE ---
CASE MANAGEMENT DISCHARGE SUMMARY PATIENT: YULIET PADILLA UNIT: [id number] ADM DATE: 03/03/19 AGE: 63 : 53 SEX: M ROOM/BED: D.2111 AUTHOR: HOWARDDOC PHYSICIAN: REFERRING PHYSICIAN: KORI OCHOA MD DATE OF SERVICE: 03/06/19 Discharge Plan Patient Name: YULIET PADILLA Facility: [facility]:[place] : 1955 Planned Disposition: Home Anticipated Discharge Date: 03/06/19 Discharge Date: Expected LOS: 3 Initial Reviewer: [id number] Initial Review Date: 03/06/2019 Generated: 03/06/19 2:35 pm Comments DCP- Discharge Planning Updated by [email or web address]: Stefano Edwards on 03/06/19 12:[address] Patient Name: YULIET PADILLA Admission Status: ER Accout number: [id number] Admission Date: 03-03-2019 : 1955 Admission Diagnosis:SHORTNESS OF BREATH Attending: KORI OCHOA Current LOS: 3 Anticipated DC Date: 03-06-2019 Planned Disposition: Home Primary Insurance: [employer] Discharge Planning Comments: CM MET WITH PT IN ROOM TO DISCUSS DISCHARGE PLANNING AND NEEDS. PT REPORTS LIVING AT HOME INDEPENDENTLY WITH HIS SISTER. PT HAS CANE, SHOWER CHAIR AND [place]ER [place]. [place] [facility] [place]. PT ITIALLY STATES HE DIDN'T KNOW IF THE [facility] WAS NOTIFIED UPON HIS ADMISSION AND WOULD TRANSFER "IF NECESSARY". CHART REVIEW INDICATED PT REFUSED TRANSFER IN ER, CM ASKED PT ABOUT TRANSFER TO [facility] AGAIN, PT ACKNOWLEDGED HE DID REFUSE AND DOES NOT WANT TO TRANSFER TO THE [facility] NOW. CM EXPLAINED PT HAS MEDICARE A ONLY AND WOULD HAVE COPAY. PT REPORTED UNDERSTANDING. PT HAS NO OUTSIDE SERVICES ASSISTING IN THE HOME. CM DISCUSSED AVAILABILITY OF HOME HEALTH, REHAB SERVICES AND MEDICAL EQUIPMENT. PT DENIES DISCHARGE NEEDS, REPORTS HIS SISTER WILL PICK HIM UP FOR DISCHARGE HOME. IMPORTANT MESSAGE FROM MEDICARE PROVIDED AND EXPLAINED. SAUTE CHEF NURSE NOTIFIED. Electrocardiographic Technician: Stefano Edwards Appended by Stefano Edwards on 03/06/2019 13:28 CDT: CM RECEIVED REQEUST FROM BEDSIDE NURSE, PT REQEUSTED TO SEE SKIN DIVING TEACHER FOR REASON UNKNOWN TO NURSE. CM MET WITH PT IN ROOM. PT REPORTS HE IS TOO WEAK TO GO HOME, CM DISCUSSED REHAB OPTIONS, PT STATES HE IS NOT GOING TO [facility] OR REHAB. PT STATES HE WANTS TO STAY IN THE HOSPITAL. CM EXPLAINED TO PT IF HE IS TOO WEAK TO GO HOME, HE IS NOT GOING TO GET STRONGER SLEEPING IN THE HOSPITAL BED AND NEEDS REHAB AND THERAPY. PT STATES HE IS GOING HOME AND TO CALL HIS SISTER. CM POINTED OUT THAT PT HAS CELL PHONE ON BEDSIDE TABLE AND HAS ABILITY TO USE IT HIMSELF. PT ASKED CM AGAIN TO CALL HIS SISTER TO PICK HIM UP. CM CALLED EVY ANGELES, , LEFT MESSAGE ASKING FOR PT'S TRANSPORTATION HOME AND ASKING FOR RETURN CALL TO CM. PT NOTIFIED. BEDSIDE NURSE NOTIFIED. STEFANO EDWARDS, CASE MANAGEMENT DCPIA - Discharge Planning Initial Assessment Updated by [id number]: Stefano Edwards on 03/06/19 1:00 pm * Is the patient Alert and Oriented? Yes * How many steps to enter\\exit or inside your home? * PCP [facility] * Pharmacy [place] ORDER NO LOCAL PHARMACY * Preadmission Environment Home with Family * ADLs Independent * Equipment Cane Shower Chair Walker * Other Equipment [employer] - MEDICAL EQUIPMENT PROVIDER * List name and contact numbers for known caregivers / representatives who currently or will assist patient after discharge: SISTER VALDOVINOS, * Verbal permission to speak to the caregivers and representatives has been obtained from the patient. Yes * Community resources currently utilized None * Please name any agencies selected above. NONE * Additional services required to return to the preadmission environment? No * Can the patient safely return to the preadmission environment? Yes * Has this patient been hospitalized within the prior 30 days at any hospital? No Coverage Notice Reviewer: [id number] - Stefano Edwards Notice Issued Date-Time: 03/06/2019 9:45 Notice Type: IM Discharge Notice Notice Delivered To: Patient Relationship to Patient: Shroudman Name: Delivery Method: HAND - Hand Delivered Tia Days: Prior Verbal Notification: Recipient Understood Notice: Yes Recipient Signature: Yes Med Rec Note Co-signed by Attending: Coverage Notice Comment: Last DP export: 03/06/19 12:10 p Patient Name: YULIET PADILLA Page [phone] at 1336 All edits/amendments must be made on the electronic document DICTATION DATE: 03/06/191334 ON SITE CONSTRUCTION SUPERINTENDENT: IVCKI 03/06/191334 RPT#: [id number] DC DATE: STATUS: ADM IN [facility] [address] [place] [address] END OF REPORT
--- NOTE | 2019-03-06 14:13 | MORECARE ---
CASE MANAGEMENT DISCHARGE SUMMARY PATIENT: YULIET PADILLA UNIT: [id number] ADM DATE: 03/03/19 AGE: 63 : 53 SEX: M ROOM/BED: D.2111 AUTHOR: HOWARDDOC PHYSICIAN: REFERRING PHYSICIAN: KORI OCHOA MD DATE OF SERVICE: 03/06/19 Discharge Plan Patient Name: YULIET PADILLA Facility: [facility]:[place] : 1955 Planned Disposition: Home Anticipated Discharge Date: 03/06/19 Discharge Date: Expected LOS: 3 Initial Reviewer: [email or web address] Initial Review Date: 03/06/2019 Generated: 03/06/19 3:13 pm Comments DCP- Discharge Planning Updated by [id number]: Stefano Edwards on 03/06/19 1:[address] Patient Name: YULIET PADILLA Admission Status: ER Accout number: [id number] Admission Date: 03-03-2019 : 1955 Admission Diagnosis:SHORTNESS OF BREATH Attending: KORI OCHOA Current LOS: 3 Anticipated DC Date: 03-06-2019 Planned Disposition: Home Primary Insurance: [employer] Discharge Planning Comments: CM MET WITH PT IN ROOM TO DISCUSS DISCHARGE PLANNING AND NEEDS. PT REPORTS LIVING AT HOME INDEPENDENTLY WITH HIS SISTER. PT HAS CANE, SHOWER CHAIR AND WALKER FROM THE [place]. [place] SE[place]. PT ITIALLY STATES HE DIDN'T KNOW IF THE VA WAS NOTIFIED UPON HIS ADMISSION AND WOULD TRANSFER "IF NECESSARY". CHART REVIEW INDICATED PT REFUSED TRANSFER IN ER, CM ASKED PT ABOUT TRANSFER TO [facility] AGAIN, PT ACKNOWLEDGED HE DID REFUSE AND DOES NOT WANT TO TRANSFER TO THE [facility] NOW. CM EXPLAINED PT HAS MEDICARE A ONLY AND WOULD HAVE COPAY. PT REPORTED UNDERSTANDING. PT HAS NO OUTSIDE SERVICES ASSISTING IN THE HOME. CM DISCUSSED AVAILABILITY OF HOME HEALTH, REHAB SERVICES AND MEDICAL EQUIPMENT. PT DENIES DISCHARGE NEEDS, REPORTS HIS SISTER WILL PICK HIM UP FOR DISCHARGE HOME. IMPORTANT MESSAGE FROM MEDICARE PROVIDED AND EXPLAINED. BOAT CARPENTER NURSE NOTIFIED. Log Roller: Stefano Edwards Appended by Stefano Edwards on 03/06/2019 13:28 CDT: CM RECEIVED REQEUST FROM BEDSIDE NURSE, PT REQEUSTED TO SEE SUPERVISOR BILLPOSTING FOR REASON UNKNOWN TO NURSE. CM MET WITH PT IN ROOM. PT REPORTS HE IS TOO WEAK TO GO HOME, CM DISCUSSED REHAB OPTIONS, PT STATES HE IS NOT GOING TO [facility] OR REHAB. PT STATES HE WANTS TO STAY IN THE HOSPITAL. CM EXPLAINED TO PT IF HE IS TOO WEAK TO GO HOME, HE IS NOT GOING TO GET STRONGER SLEEPING IN THE HOSPITAL BED AND NEEDS REHAB AND THERAPY. PT STATES HE IS GOING HOME AND TO CALL HIS SISTER. CM POINTED OUT THAT PT HAS CELL PHONE ON BEDSIDE TABLE AND HAS ABILITY TO USE IT HIMSELF. PT ASKED CM AGAIN TO CALL HIS SISTER TO PICK HIM UP. CM CALLED [facility] ANGELES, , LEFT MESSAGE ASKING FOR PT'S TRANSPORTATION HOME AND ASKING FOR RETURN CALL TO . PT NOTIFIED. BEDSIDE NURSE NOTIFIED. STEFANO EDWARDS, CASE MANAGEMENT Appended by Stefano Edwards on 03/06/2019 14:09 CDT: CM SPOKE TO PT IN ROOM, INFORMED HIM THAT CM LEFT MESSAGE FOR HIS SISTER AT HOME. PT REPORTS HIS SISTER IS AT WORK, CALLED HIS SISTER VIA CELL PHONE AT [phone]. EVY REPORTS TO BE PT'S SISTER AND INFORMED CM THAT PT SHOULD HAVE BEEN TRANSFERRED TO [facility]. CM EXPLAINED THAT PT REFUSED TRANSFER TO [facility]. PT'S SISTER STATES THAT PT HAS SUBSTANCE ABUSE PROBLEM AND SHE WOULD LIKE TO GET HIM TO THE [facility] FOR TREATMENT. CM EXPLAINED THAT PT MUST REQUEST SERVICES AND BE WILLING FOR THE TREATMENT. SISTER REPORTS THAT PT HAS APPOINTMENT AT [facility] ON 03-04. SHE DOES NOT KNOW HIS PRIMARY CARE DOCTORS NAME BUT PT DOES. CM ASKED PT HIS PRIMARY CARE DOCTOR'S NAME, PT STATES "MOTION". SISTER ASKED CM TO FAX INFORMATION TO [place] TO ASSIST WITH PT'S FOLLOW UP CARE AND SHE WILL WORK ON GETTING SOMEONE TO MECHANICAL MANUFACTURING ENGINEER PT TODAY. CM SPOKE TO PT AND ASKED PT IF HE WANTS TREATMENT FOR ALCOHOLISM, PT DID NOT ANSWER. CM ASKED PT WHAT HE DRINKS, PT STATES VODKA AND ASKED "WHY, DO YOU HAVE SOME?" CM ASKED HOW MUCH AND HOW OFTEN, PT STATES A LOT EVERY DAY. CM AGAIN ASKED PT IF HE WANTS TREATMENT. PT ASKED CM TO HELP HIM PULL UP HIS PANTS AND CONTINUED TO IGNORE THE QUESTION STATING THAT "YOU ARE KICKING ME OUT OF THE HOSPITAL. CM EXPLAINED THAT PT HAS BEEN TREATED AND CLEARED MEDICALLY AND FURTHER EXPLAINED THAT TO PT THAT IF HE WANTS HELP, HE NEEDS TO SEEK TREATMENT AT [facility] PERSONALLY AND HAS TO EXPRESS WILLINGNESS FOR TREATMENT FOR ALCOHOLISM IF HE WANTS IT. PT REPORTS UNDERSTANDING. CM ASKED PT IF HE WANTS RECORDS FAXED TO [place], PT STATES YES, TO DR. MARTINEZ. BEDSIDE NURSE NOTIFIED. CM CALLED [facility], , SPOKE TO JOYCE WHO PROVIDED DR. AMANDA FAX OF [phone]. CM FAXED RECORDS REQUESTED. CM NOTIFIED PT WHO DENIES FURTHER NEEDS. STEFANO EDWARDS, CASE MANAGEMENT DCPIA - Discharge Planning Initial Assessment Updated by [id number]: Stefano Edwards on 03/06/19 1:00 pm * Is the patient Alert and Oriented? Yes * How many steps to enter\\exit or inside your home? * PCP [facility] * Pharmacy [place] ORDER [place] LOCAL PHARMACY * Preadmission Environment Home with Family * ADLs Independent * Equipment Cane Shower Chair Walker * Other Equipment [facility] - MEDICAL EQUIPMENT PROVIDER * List name and contact numbers for known caregivers / representatives who currently or will assist patient after discharge: EVY ANGELES, SISTER, * Verbal permission to speak to the caregivers and representatives has been obtained from the patient. Yes * Community resources currently utilized None * Please name any agencies selected above. NONE * Additional services required to return to the preadmission environment? No * Can the patient safely return to the preadmission environment? Yes * Has this patient been hospitalized within the prior 30 days at any hospital? No Coverage Notice Reviewer: [id number] - Stefano Edwards Notice Issued Date-Time: 03/06/2019 9:45 Notice Type: IM Discharge Notice Notice Delivered To: Patient Relationship to Patient: Transmission Inspector Name: Delivery Method: HAND - Hand Delivered Tia Days: Prior Verbal Notification: Recipient Understood Notice: Yes Recipient Signature: Yes Med Rec Note Co-signed by Attending: Coverage Notice Comment: Last DP export: 03/06/19 12:36 p Patient Name: YULIET PADILLA Page [id number] at 1413 All edits/amendments must be made on the electronic document DICTATION DATE: 03/06/191411 SLASHER HAND: VICKI 03/06/191411 RPT#: [id number] DC DATE: STATUS: ADM IN [facility] [address] [place] [address] END OF REPORT
--- NOTE | 2019-03-06 14:29 | MORECARE ---
CASE MANAGEMENT DISCHARGE SUMMARY PATIENT: YULIET PADILLA UNIT: [id number] ADM DATE: 03/03/19 AGE: 63 : 53 SEX: M ROOM/BED: D.2111 AUTHOR: HOWARDDOC PHYSICIAN: REFERRING PHYSICIAN: KORI OCHOA MD DATE OF SERVICE: 03/06/19 Discharge Plan Patient Name: YULIET PADILLA Facility: [facility]:[place] : 1955 Planned Disposition: Home Anticipated Discharge Date: 03/06/19 Discharge Date: Expected LOS: 3 Initial Reviewer: [email or web address] Initial Review Date: 03/06/2019 Generated: 03/06/19 3:29 pm Comments DCP- Discharge Planning Updated by [id number]: Stefano Edwards on 03/06/19 1:[address] Patient Name: YULIET PADILLA Admission Status: ER Accout number: [id number] Admission Date: 03-03-2019 : 1955 Admission Diagnosis:SHORTNESS OF BREATH Attending: KORI OCHOA Current LOS: 3 Anticipated DC Date: 03-06-2019 Planned Disposition: Home Primary Insurance: [employer] Discharge Planning Comments: CM MET WITH PT IN ROOM TO DISCUSS DISCHARGE PLANNING AND NEEDS. PT REPORTS LIVING AT HOME INDEPENDENTLY WITH HIS SISTER. PT HAS CANE, SHOWER CHAIR AND WALKER FROM THE [place]. [place] SEEN [place]. PT ITIALLY STATES HE DIDN'T KNOW IF THE [facility] WAS NOTIFIED UPON HIS ADMISSION AND WOULD TRANSFER "IF NECESSARY". CHART REVIEW INDICATED PT REFUSED TRANSFER IN ER, CM ASKED PT ABOUT TRANSFER TO [facility] AGAIN, PT ACKNOWLEDGED HE DID REFUSE AND DOES NOT WANT TO TRANSFER TO THE [place] NOW. CM EXPLAINED PT HAS MEDICARE A ONLY AND WOULD HAVE COPAY. PT REPORTED UNDERSTANDING. PT HAS NO OUTSIDE SERVICES ASSISTING IN THE HOME. CM DISCUSSED AVAILABILITY OF HOME HEALTH, REHAB SERVICES AND MEDICAL EQUIPMENT. PT DENIES DISCHARGE NEEDS, REPORTS HIS SISTER WILL PICK HIM UP FOR DISCHARGE HOME. IMPORTANT MESSAGE FROM MEDICARE PROVIDED AND EXPLAINED. VICE PRESIDENT EDUCATION NURSE NOTIFIED. Financial Services Consultant: Stefano Edwards Appended by Stefano Edwards on 03/06/2019 13:28 CDT: CM RECEIVED REQEUST FROM BEDSIDE NURSE, PT REQEUSTED TO SEE STORM CHASER FOR REASON UNKNOWN TO NURSE. CM MET WITH PT IN ROOM. PT REPORTS HE IS TOO WEAK TO GO HOME, CM DISCUSSED REHAB OPTIONS, PT STATES HE IS NOT GOING TO [facility] OR [facility]. PT STATES HE WANTS TO STAY IN THE HOSPITAL. CM EXPLAINED TO PT IF HE IS TOO WEAK TO GO HOME, HE IS NOT GOING TO GET STRONGER SLEEPING IN THE HOSPITAL BED AND NEEDS REHAB AND THERAPY. PT STATES HE IS GOING HOME AND TO CALL HIS SISTER. CM POINTED OUT THAT PT HAS CELL PHONE ON BEDSIDE TABLE AND HAS ABILITY TO USE IT HIMSELF. PT ASKED CM AGAIN TO CALL HIS SISTER TO PICK HIM UP. CM CALLED EVY ANGELES, , LEFT MESSAGE ASKING FOR PT'S TRANSPORTATION HOME AND ASKING FOR RETURN CALL TO . PT NOTIFIED. BEDSIDE NURSE NOTIFIED. STEFANO EDWARDS, CASE MANAGEMENT Appended by Stefano Edwards on 03/06/2019 14:09 CDT: CM SPOKE TO PT IN ROOM, INFORMED HIM THAT CM LEFT MESSAGE FOR HIS SISTER AT HOME. PT REPORTS HIS SISTER IS AT WORK, CALLED HIS SISTER VIA CELL PHONE AT [phone]. EVY REPORTS TO BE PT'S SISTER AND INFORMED CM THAT PT SHOULD HAVE BEEN TRANSFERRED TO [place]. CM EXPLAINED THAT PT REFUSED TRANSFER TO [place]. PT'S SISTER STATES THAT PT HAS SUBSTANCE ABUSE PROBLEM AND SHE WOULD LIKE TO GET HIM TO THE [place] FOR TREATMENT. CM EXPLAINED THAT PT MUST REQUEST SERVICES AND BE WILLING FOR THE TREATMENT. SISTER REPORTS THAT PT HAS APPOINTMENT AT [facility] ON 03-04. SHE DOES NOT KNOW HIS PRIMARY CARE DOCTORS NAME BUT PT DOES. CM ASKED PT HIS PRIMARY CARE DOCTOR'S NAME, PT STATES "MOTION". SISTER ASKED CM TO FAX INFORMATION TO [place] TO ASSIST WITH PT'S FOLLOW UP CARE AND SHE WILL WORK ON GETTING SOMEONE TO MOTION PICTURE ACTOR PT TODAY. CM SPOKE TO PT AND ASKED PT IF HE WANTS TREATMENT FOR ALCOHOLISM, PT DID NOT ANSWER. CM ASKED PT WHAT HE DRINKS, PT STATES VODKA AND ASKED "WHY, DO YOU HAVE SOME?" CM ASKED HOW MUCH AND HOW OFTEN, PT STATES A LOT EVERY DAY. CM AGAIN ASKED PT IF HE WANTS TREATMENT. PT ASKED CM TO HELP HIM PULL UP HIS PANTS AND CONTINUED TO IGNORE THE QUESTION STATING THAT "YOU ARE KICKING ME OUT OF THE HOSPITAL. CM EXPLAINED THAT PT HAS BEEN TREATED AND CLEARED MEDICALLY AND FURTHER EXPLAINED THAT TO PT THAT IF HE WANTS HELP, HE NEEDS TO SEEK TREATMENT AT [place] PERSONALLY AND HAS TO EXPRESS WILLINGNESS FOR TREATMENT FOR ALCOHOLISM IF HE WANTS IT. PT REPORTS UNDERSTANDING. CM ASKED PT IF HE WANTS RECORDS FAXED TO [place], PT STATES YES, TO DR. MARTINEZ. BEDSIDE NURSE NOTIFIED. CM CALLED [facility], , SPOKE TO JOYCE WHO PROVIDED DR. AMANDA FAX OF [phone]. CM FAXED RECORDS REQUESTED. CM NOTIFIED PT WHO DENIES FURTHER NEEDS. STEFANO EDWARDS, CASE MANAGEMENT DCPIA - Discharge Planning Initial Assessment Updated by [id number]: Stefano Edwards on 03/06/19 1:00 pm * Is the patient Alert and Oriented? Yes * How many steps to enter\\exit or inside your home? * PCP [facility] * Pharmacy [place] MAIL ORDER NO LOCAL PHARMACY * Preadmission Environment Home with Family * ADLs Independent * Equipment Cane Shower Chair Walker * Other Equipment [facility] - MEDICAL EQUIPMENT PROVIDER * List name and contact numbers for known caregivers / representatives who currently or will assist patient after discharge: EVY ANGELES, SISTER, * Verbal permission to speak to the caregivers and representatives has been obtained from the patient. Yes * Community resources currently utilized None * Please name any agencies selected above. NONE * Additional services required to return to the preadmission environment? No * Can the patient safely return to the preadmission environment? Yes * Has this patient been hospitalized within the prior 30 days at any hospital? No External Providers External Provider: OTHER-OTHER Next Contact Date: 03/06/2019 Service Request Date: Service Type: Resolution: Reviewer: Comments: Coverage Notice Reviewer: [id number] - Stefano Edwards Notice Issued Date-Time: 03/06/2019 9:45 Notice Type: IM Discharge Notice Notice Delivered To: Patient Relationship to Patient: Remote Operations Producer Name: Delivery Method: HAND - Hand Delivered Tia Days: Prior Verbal Notification: Recipient Understood Notice: Yes Recipient Signature: Yes Med Rec Note Co-signed by Attending: Coverage Notice Comment: Last DP export: 03/06/19 1:13 p Patient Name: YULIET PADILLA Page [id number] at 1429 All edits/amendments must be made on the electronic document DICTATION DATE: 03/06/19 1426 RADIOLOGIST DIAGNOSTIC: VICKI 03/06/19 1428 RPT#: [id number] DC DATE: STATUS: ADM IN [facility] [address] [place] [address] END OF REPORT
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
[2019-03-06 16:00] VITALS: BP 149/95
--- NOTE | 2019-03-06 17:00 | NUR ---
PTS BROTHER CALLED AND REQUESTED PT BE TRANSFERRED TO [facility] FOR TREATMENT OF ALCOHOLISM. ADVISED HIM WE DID NOT HAVE AN ORDER TO TRANSFER. HE IS TO BE DISCHARGED. BROTHER REFUSES TO COME AND PICK HIM UP. INFORMED DR. ATKINS AND ORDER RECEIVED TO GET PT CONSULT TOMORROW FOR POSSIBLE REHAG PLACEMENT AT A [facility]. DISCHARGE CANCELLED.
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
--- NOTE | 2019-03-06 19:00 | NUR ---
PATIENT LAYING IN BED, EYES CLOSED, CHEST RISING AND FALLING.
--- NOTE | 2019-03-06 23:45 | NUR ---
PATIENT LAYING IN BED, EYES CLOSED, CHEST RISING AND FALLING.
[2019-03-07] VITALS: BP 150/106
[2019-03-07 04:00] VITALS: BP 175/103
--- NOTE | 2019-03-07 05:00 | NUR ---
PATIENT LAYING IN BED. EYES CLOSED, CHEST RISING AND FALLING. NO DISTRESS NOTED.
[2019-03-07 05:09] LABS: BASOPHILS 0.3 % (0-2); HEMATOCRIT 29.3 % (42.0-54.0); HEMOGLOBIN 9.8 g/dL (13.5-17.5); IMMATURE GRANULOCYTES 0.3 % (0-5); LYMPHOCYTES 20.9 % (15-50); MCH 26.2 pg (26.0-34.0); MCHC 33.4 g/dL (31.0-37.0); MCV 78.3 fL (80.0-100.0); MEAN PLATELET VOLUME 9.4 fL (7.4-10.4); MONOCYTES 10.8 % (2-11); NEUTROPHILS 64.7 % (40-80); PLATELET COUNT 151 10x3/uL (130-400); RBC 3.74 10x6/uL (4.20-6.10); RDW 20.6 % (11.5-14.5)
[2019-03-07 05:34] LABS: ALBUMIN 2.3 g/dL (3.4-5.0); ANION GAP 15.4 mmol/L (8-16); BILIRUBIN - TOTAL 0.57 mg/dL (0.2-1.3); CALCIUM 8.3 mg/dL (8.5-10.1); CARBON DIOXIDE 17.9 mmol/L (21.0-32.0); POTASSIUM - SERUM 4.3 mmol/L (3.5-5.1); PROTEIN - SERUM 7.5 g/dL (6.4-8.2)
--- NOTE | 2019-03-07 08:00 | NUR ---
POSITIONED ON BACK WITH EYES CLOSED AND SNORING RESPIRATIONS. WOKE PT UP AND ASSISTED TO SITTING POSITION ON SIDE OF BED SO HE COULD EAT HIS BREAKFAST. VERY GROGGY AND SLEEPY. BLOOD SUGAR DONE EARLIER WNL. ASSESSMENT COMPLETED AND WILL CONTINUE POC.
[2019-03-07 08:22] VITALS: BP 130/86
--- NOTE | 2019-03-07 08:32 | MORECARE ---
CASE MANAGEMENT DISCHARGE SUMMARY PATIENT: YULIET PADILLA UNIT: [id number] ADM DATE: 03/03/19 AGE: 63 : 53 SEX: M ROOM/BED: D.2111 AUTHOR: FIDEL LAWRENCE PHYSICIAN: REFERRING PHYSICIAN: KORI OCHOA MD DATE OF SERVICE: 03/07/19 Discharge Plan Patient Name: YULIET PADILLA [facility] [facility] 1955 Planned Disposition: Custodial Facility Anticipated Discharge Date: 03/07/19 Discharge Date: Expected LOS: 4 Initial Reviewer: [id number] Initial Review Date: 03/06/2019 Generated: 03/07/19 9:32 am Comments DCP- Discharge Planning Updated by [id number]: Stefano Edwards on 03/07/19 7:[address] Patient Name: YULIET PADILLA Encounter No: [id number] : 1955 Primary Insurance: [employer] Anticipated DC Date: 03-07-2019 Planned Disposition: Custodial Facility OR INPATIENT REHAB External Planned Provider: [facility] OR [facility] INPATIENT REH[facility] DCP follow-up note: CM RECEIVED INPATIENT REHAB PRESCREENING. CM SPOKE TO PT IN ROOM AND DISCUSSED REHAB OPTIONS. PT STATES HE WOULD RATHER STAY AT [place] FOR REHAB IF POSSIBLE, SECOND CHOICE OF [facility] FOR INPATIENT REHAB WITH THIRD CHOICE BEING THE [facility] FOR CARE HOME REHAB. PT VERY SLEEPY AND HAVING HARD TIME STAYING AWAKE, QUESTIONS HAD TO BE ASKED SEVERAL TIMES. CM FAXED REFERRAL TO [facility]IENT [facility] AT [phone]. CM HAS FAXED REFERRAL TO THE [facility] LAST EVENING. CM WAITING PHYSICAL THERAPY EVALUATION RESULTS AND WILL FAX THEM TO [facility] AND [facility]. CM WILL ALSO FOLLOW UP WITH [facility]. JANNET Cherry DCP- Discharge Planning Updated by [id number]: Stefano Edwards on 03/06/19 4:[address] Patient Name: YULIET PADILLA Admission Status: ER Accout number: [id number] Admission Date: 03-03-2019 : 1955 Admission Diagnosis:SHORTNESS OF BREATH Attending: KORI OCHOA Current LOS: 3 Anticipated DC Date: 03-06-2019 Planned Disposition: Home Primary Insurance: [employer] Discharge Planning Comments: CM MET WITH PT IN ROOM TO DISCUSS DISCHARGE PLANNING AND NEEDS. PT REPORTS LIVING AT HOME INDEPENDENTLY WITH HIS SISTER. PT [facility] [place]. PT ITIALLY STATES HE DIDN'T KNOW IF THE [facility] WAS NOTIFIED UPON HIS ADMISSION AND WOULD TRANSFER "IF NECESSARY". CHART REVIEW INDICATED PT REFUSED TRANSFER IN ER, CM ASKED PT ABOUT TRANSFER TO [facility] AGAIN, PT ACKNOWLEDGED HE DID REFUSE AND DOES NOT WANT TO [facility]SFER TO THE [facility] NOW. CM EXPLAINED PT HAS MEDICARE A ONLY AND WOULD HAVE COPAY. PT REPORTED UNDERSTANDING. PT HAS NO OUTSIDE SERVICES ASSISTING IN THE HOME. CM DISCUSSED AVAILABILITY OF HOME HEALTH, REHAB SERVICES AND MEDICAL EQUIPMENT. PT DENIES DISCHARGE NEEDS, REPORTS HIS SISTER WILL PICK HIM UP FOR DISCHARGE HOME. IMPORTANT MESSAGE FROM MEDICARE PROVIDED AND EXPLAINED. TRACK MANAGER NURSE NOTIFIED. Civilian Technician: Stefano Edwards Appended by Stefano Edwards on 03/06/2019 13:28 CDT: CM RECEIVED REQEUST FROM BEDSIDE NURSE, PT REQEUSTED TO SEE SCREW MACHINE TOOL SETTER FOR REASON UNKNOWN TO NURSE. CM MET WITH PT IN ROOM. PT REPORTS HE IS TOO WEAK TO GO HOME, CM DISCUSSED REHAB OPTIONS, PT STATES HE IS NOT GOING TO CARE HOME OR REHAB. PT STATES HE WANTS TO STAY IN THE HOSPITAL. CM EXPLAINED TO PT IF HE IS TOO WEAK TO GO HOME, HE IS NOT GOING TO GET STRONGER SLEEPING IN THE HOSPITAL BED AND NEEDS REHAB AND THERAPY. PT STATES HE IS GOING HOME AND TO CALL HIS SISTER. CM POINTED OUT THAT PT HAS CELL PHONE ON BEDSIDE TABLE AND HAS ABILITY TO USE IT HIMSELF. PT ASKED CM AGAIN TO CALL HIS SISTER TO PICK HIM UP. CM CALLED EVY ANGELES, , LEFT MESSAGE ASKING FOR PT'S TRANSPORTATION HOME AND ASKING FOR RETURN CALL TO . PT NOTIFIED. BEDSIDE NURSE NOTIFIED. STEFANO EDWARDS, CASE MANAGEMENT Appended by Steafno Edwards on 03/06/2019 14:09 CDT: CM SPOKE TO PT IN ROOM, INFORMED HIM THAT CM LEFT MESSAGE FOR HIS SISTER AT HOME. PT REPORTS HIS SISTER IS AT WORK, CALLED HIS SISTER VIA CELL PHONE AT [phone]. EVY REPORTS TO BE PT'S SISTER AND INFORMED CM THAT PT SHOULD HAVE BEEN TRANSFERRED TO [facility]. CM EXPLAINED THAT PT [facility] TO [facility]. PT'S SISTER STATES THAT PT HAS SUBSTANCE ABUSE PROBLEM AND SHE WOULD LIKE TO GET HIM TO THE [facility] FOR TREATMENT. CM EXPLAINED THAT PT MUST REQUEST SERVICES AND BE WILLING FOR THE TREATMENT. SISTER REPORTS THAT PT HAS APPOINTMENT AT [facility] ON 03-04. SHE DOES NOT KNOW HIS PRIMARY CARE DOCTORS NAME BUT PT DOES. CM ASKED PT HIS PRIMARY CARE DOCTOR'S NAME, PT STATES "MICHELLE". SISTER ASKED CM TO FAX INFORMATION TO [facility] TO ASSIST WITH PT'S FOLLOW UP CARE AND SHE WILL WORK ON GETTING SOMEONE TO SKIP PIT WORKER PT TODAY. CM SPOKE TO PT AND ASKED PT IF HE WANTS TREATMENT FOR ALCOHOLISM, PT DID NOT ANSWER. CM ASKED PT WHAT HE DRINKS, PT STATES VODKA AND ASKED "WHY, DO YOU HAVE SOME?" CM ASKED HOW MUCH AND HOW OFTEN, PT STATES A LOT EVERY DAY. CM AGAIN ASKED PT IF HE WANTS TREATMENT. PT ASKED CM TO HELP HIM PULL UP HIS PANTS AND CONTINUED TO IGNORE THE QUESTION STATING THAT "YOU ARE KICKING ME OUT OF THE HOSPITAL. CM EXPLAINED THAT PT HAS BEEN TREATED AND CLEARED MEDICALLY AND FURTHER EXPLAINED THAT TO PT THAT IF HE WANTS HELP, HE NEEDS TO SEEK TREATMENT AT [facility] PERSONALLY AND HAS TO EXPRESS WILLINGNESS FOR TREATMENT FOR ALCOHOLISM IF HE WANTS IT. PT REPORTS UNDERSTANDING. CM ASKED PT IF HE WANTS RECORDS FAXED TO [facility], PT STATES YES, TO DR. MARTINEZ. BEDSIDE NURSE NOTIFIED. CM CALLED [facility], , SPOKE TO JOYCE WHO PROVIDED DR. AMANDA FAX OF [phone]. CM FAXED RECORDS REQUESTED. CM NOTIFIED PT WHO DENIES FURTHER NEEDS. STEFANO EDWARDS, CASE MANAGEMENT Appended by Stefano Edwards on 03/06/2019 14:32 CDT: CORRECTION: PT'S SISTER REPORTS FOLLOW UP APPOINTMENT AT [facility] TO BE 04-03-19. STEFANO EDWARDS, CASE MANAGEMENT Appended by Stefano Edwards on 03/06/2019 17:28 CDT: CM SPOKE TO BEDSIDE NURSE WHO INFORMED CM THAT PT'S FAMILY REFUSED TO SKIP PIT WORKER PT AT ABOUT 1700 HOURS STATING PT IS NOT ABLE TO TAKE CARE OF HIMSELF. BEDSIDE NURSE HAS EXPLAINED THAT PT IS STABLE AND WILL NOT BE TRANSFERRED TO [facility]. CM SPOKE TO PT IN ROOM, EXPLAINED ABOVE. PT REPORTS HE IS WEAK AND WOULD GO TO A NURSING FACILITY FOR REHAB TO GET STRONGER. CM EXPLAINED THAT CM WILL TRY BUT MAY NOT BE ABLE TO DO THIS FOR PT. PT REPORTS HAVING NO OTHER OPTIONS. CM PROVIDED PT WITH LISTING OF NURSING FACILITIES, PT SIGNED CONSENT FOR ANY NURSING FACILITY IN [place]. PT THINKS THE [facility] WOULD PAY FOR HIS NURSING CARE IF CM CAN FIND ONE THAT THE [facility] COV[facility]. CM NOTIFIED FELIX OF THE [facility], , OF REFERRAL. CM NOTIFIED DR. BARRIENTOS OF ABOVE INFORMATION AND ASKED IF WE COULD HAVE ORDER FOR PHYSICAL THERAPY EVALUATION. DR. ATKINS PROVIDED ORDER. BEDSIDE NURSE NOTIFIED. CM FAXED REFERRAL FOR REHAB SERVICES TO THE [facility] VIA FELIX AT [phone]. CM WAITING ADMISSION DETERMINATION FROM THE [facility]. STEFANO EDWARDS, CASE MANAGEMENT DCPIA - Discharge Planning Initial Assessment Updated by [id number]: Stefano Edwards on 03/06/19 1:00 pm * Is the patient Alert and Oriented? Yes * How many steps to enter\\exit or inside your home? * PCP [facility] * Pharmacy [facility] LOCAL PHARMACY * Preadmission Environment Home with Family * ADLs Independent * Equipment Cane Shower Chair Walker * Other Equipment [facility] - MEDICAL EQUIPMENT PROVIDER * List name and contact numbers for known caregivers / representatives who currently or will assist patient after discharge: EVY ANGELES, SISTER, * Verbal permission to speak to the caregivers and representatives has been obtained from the patient. Yes * Community resources currently utilized None * Please name any agencies selected above. NONE * Additional services required to return to the preadmission environment? No * Can the patient safely return to the preadmission environment? Yes * Has this patient been hospitalized within the prior 30 days at any hospital? No Coverage Notice Reviewer: [id number] Sondra Edwards Notice Issued Date-Time: 03/06/2019 9:45 Notice Type: IM Discharge Notice Notice Delivered To: Patient Relationship to Patient: Visual Merchandising Assistant Name: Delivery Method: HAND - Hand Delivered Tia Days: Prior Verbal Notification: Recipient Understood Notice: Yes Recipient Signature: Yes Med Rec Note Co-signed by Attending: Coverage Notice Comment: Reviewer: [id number] Edwards Notice Issued Date-Time: 03/06/2019 17:02 Notice Type: Patient Choice Letter Notice Delivered To: Patient Relationship to Patient: Visual Merchandising Assistant Name: Delivery Method: HAND - Hand Delivered Tia Days: Prior Verbal Notification: Recipient Understood Notice: Yes Recipient Signature: Yes Med Rec Note Co-signed by Attending: Coverage Notice Comment: ANY NURSING FACILITY IN [place] FOR REHAB. Last DP export: 03/06/19 4:35 p Patient Name: YULIET PADILLA Page [id number] at 0832 All edits/amendments must be made on the electronic document DICTATION DATE: 03/07/19830 SNOW REMOVAL SUPERVISOR: VICKI 03/07/19830 RPT#: [id number] DC DATE: STATUS: ADM IN [facility] [address] [place] [address] END OF REPORT
--- NOTE | 2019-03-07 10:04 | NUR ---
Rehab Prescreening Consult recieved and the chart has been reviewed. He is [facility] which will not cover [facility] Rehab at [facility]. He has not had a PT eval and it is documented he has been aggitated with staff members. It is also documented per his brother he needs an alcoholic rehab which the patient is refusing. He is not appropriate for the inpatient rehab at this time. Priscila Rivero RN Clinical Liaison, Rehab
--- NOTE | 2019-03-07 10:27 | NUR ---
Nutrition Follow Up: Diabetic diet with 65% average po intake past 3 days Labs: BG 83, BUN 42, Cr 3.0, Na 134 Weight 209.4lb Pt is sleeping now RD following
[2019-03-07 12:12] VITALS: BP 148/72
--- NOTE | 2019-03-07 16:28 | MORECARE ---
CASE MANAGEMENT DISCHARGE SUMMARY PATIENT: YULIET PADILLA UNIT: [id number] ADM DATE: 03/03/19 AGE: 63 : 53 SEX: M ROOM/BED: D.2111 AUTHOR: HOWARD,DOC PHYSICIAN: REFERRING PHYSICIAN: KORI OCHOA MD DATE OF SERVICE: 03/07/19 Discharge Plan Patient Name: YULIET PADILLA Facility: [facility]:[place] : 1955 Planned Disposition: Senior Living Facility Anticipated Discharge Date: 03/07/19 Discharge Date: Expected LOS: 4 Initial Reviewer: ANA Initial Review Date: 03/06/2019 Generated: 03/07/19 5:28 pm Comments DCP- Discharge Planning Updated by [id number]: Stefano Edwards on 03/07/19 3:[address] Patient Name: YULIET PADILLA Encounter No: [id number] : 1955 Primary Insurance: [facility] Anticipated DC Date: 03-07-2019 Planned Disposition: Senior Living Facility External Planned Provider:[facility] OR [facility] INPATIENT REH[facility] DCP follow-up note: CM SPOKE TO FELIX OF [facility] WHO IS HERE TO ASSESS PT. CM MET WITH PT AND FELIX IN ROOM. PT VERY SLEEPY AND WAS NOT ABLE TO STAY AWAKE FOR ASSESSMENT. FELIX INFORMED CM THAT SHE WOULD COME BACK AND REASSESS FOR REHAB WHEN PT IS ABLE TO STAY AWAKE AND PARTICIPATE. JAROD LUCIANO NOTIFIED. CM SPOKE TO LIZY OF INPATIENT REHAB, PT IS NOT APPROPRIATE FOR INPATIENT REHAB AT [place]. CM RECEIVED EMAIL FROM KHALIDA DUGGAN OF [facility], THEY HAVE RECEIVED REFERRAL. CM CALLED KHALIDA AT [phone], SHE HAD LEFT FOR THE DAY. CM FAXED REFERRAL UPDATE WITH PHYSICAL THERAPY EVALUATION TO [facility] AT [phone]. CM HAS FAXED REFERRAL UPDATE WITH PHYSICAL THERAPY EVALUATION TO [facility] VIA FELIX AT [phone]. CM WAITING ADMISSION DETERMINATIONS FROM [facility] INPATIENT REH[facility] AND [facility] WHO WILL REASSESS PT WHEN HE IS ABLE TO STAY AWAKE AND PARTICIPATE IN THERAPY AND ASSESSMENT FOR REHAB PLACEMENT. JANNET Cherry DCP- Discharge Planning Updated by [id number]: Stefano Edwards on 03/07/19 7:[address] Patient Name: YULIET PADILLA Encounter No: [id number] : 1955 Primary Insurance: [employer] Anticipated DC Date: 03-07-2019 Planned Disposition: Senior Living Facility OR INPATIENT REHAB External Planned Provider: [facility] INPATIENT REHAB OR [facility] INPATIENT REHAB DCP follow-up note: CM RECEIVED INPATIENT REHAB PRESCREENING. CM SPOKE TO PT IN ROOM AND DISCUSSED REHAB OPTIONS. PT STATES HE WOULD RATHER STAY AT [place] FOR REHAB IF POSSIBLE, SECOND CHOICE OF [facility] FOR INPATIENT REHAB WITH THIRD CHOICE BEING [facility] FOR [facility] REHAB. PT VERY SLEEPY AND HAVING HARD TIME STAYING AWAKE, QUESTIONS HAD TO BE ASKED SEVERAL TIMES. CM FAXED REFERRAL TO [facility] AT [phone]. CM HAS FAXED REFERRAL TO [facility] LAST EVENING. CM WAITING PHYSICAL THERAPY EVALUATION RESULTS AND WILL FAX THEM TO [facility] AND [facility]. CM WILL ALSO FOLLOW UP WITH [facility] INPATIENT REH[facility]. Stefano Edwards, CASE MANAGEMENT DCP- Discharge Planning Updated by [id number]: Stefano Edwards on 03/06/19 4:[address] Patient Name: YULIET PADILLA Admission Status: ER Accout number: [id number] Admission Date: 03-03-2019 : 1955 Admission Diagnosis:SHORTNESS OF BREATH Attending: KORI OCHOA Current LOS: 3 Anticipated DC Date: 03-06-2019 Planned Disposition: Home Primary Insurance: [facility] [employer] Discharge Planning Comments: CM MET WITH PT IN ROOM TO DISCUSS DISCHARGE PLANNING AND NEEDS. PT REPORTS LIVING AT HOME INDEPENDENTLY WITH HIS SISTER. PT HAS CANE, SHOWER CHAIR AND [facility]ER [facility] THE [facility]. [facility] BY [facility] IN [place]. PT ITIALLY STATES HE DIDN'T KNOW IF THE [facility] WAS NOTIFIED UPON HIS ADMISSION AND WOULD TRANSFER "IF NECESSARY". CHART REVIEW INDICATED PT REFUSED TRANSFER IN ER, CM ASKED PT ABOUT TRANSFER TO [facility] AGAIN, PT ACKNOWLEDGED HE DID REFUSE AND DOES NOT WANT TO TRANSFER TO THE [facility] NOW. CM EXPLAINED PT HAS MEDICARE A ONLY AND WOULD HAVE COPAY. PT REPORTED UNDERSTANDING. PT HAS NO OUTSIDE SERVICES ASSISTING IN THE HOME. CM DISCUSSED AVAILABILITY OF HOME HEALTH, REHAB SERVICES AND MEDICAL EQUIPMENT. PT DENIES DISCHARGE NEEDS, REPORTS HIS SISTER WILL PICK HIM UP FOR DISCHARGE HOME. IMPORTANT MESSAGE FROM MEDICARE PROVIDED AND EXPLAINED. BED BUG EXTERMINATOR NURSE NOTIFIED. Dye Boarding Machine Operator: Stefano Edwards Appended by Stefano Edwards on 03/06/2019 13:28 CDT: CM RECEIVED REQEUST FROM BEDSIDE NURSE, PT REQEUSTED TO SEE SUBSTANCE ABUSE THERAPIST FOR REASON UNKNOWN TO NURSE. CM MET WITH PT IN ROOM. PT REPORTS HE IS TOO WEAK TO GO HOME, CM DISCUSSED REHAB OPTIONS, PT STATES HE IS NOT GOING TO RESIDENTIAL OR REHAB. PT STATES HE WANTS TO STAY IN THE HOSPITAL. CM EXPLAINED TO PT IF HE IS TOO WEAK TO GO HOME, HE IS NOT GOING TO GET STRONGER SLEEPING IN THE HOSPITAL BED AND NEEDS REHAB AND THERAPY. PT STATES HE IS GOING HOME AND TO CALL HIS SISTER. CM POINTED OUT THAT PT HAS CELL PHONE ON BEDSIDE TABLE AND HAS ABILITY TO USE IT HIMSELF. PT ASKED CM AGAIN TO CALL HIS SISTER TO PICK HIM UP. CM CALLED [employer] ANGELES, , LEFT MESSAGE ASKING FOR PT'S TRANSPORTATION HOME AND ASKING FOR RETURN CALL TO . PT NOTIFIED. BEDSIDE NURSE NOTIFIED. STEFANO EDWARDS, CASE MANAGEMENT Appended by Stefano Edwards on 03/06/2019 14:09 CDT: CM SPOKE TO PT IN ROOM, INFORMED HIM THAT CM LEFT MESSAGE FOR HIS SISTER AT HOME. PT REPORTS HIS SISTER IS AT WORK, CALLED HIS SISTER VIA CELL PHONE AT [phone]. EVY REPORTS TO BE PT'S SISTER AND INFORMED CM THAT PT SHOULD HAVE BEEN TRANSFERRED TO [facility]. CM EXPLAINED THAT PT REFUSED TRANSFER TO [facility]. PT'S SISTER STATES THAT PT HAS SUBSTANCE ABUSE PROBLEM AND SHE WOULD LIKE TO GET HIM TO THE [facility] FOR TREATMENT. CM EXPLAINED THAT PT MUST REQUEST SERVICES AND BE WILLING FOR THE TREATMENT. SISTER REPORTS THAT PT HAS APPOINTMENT AT [facility] ON 03-04. SHE DOES NOT KNOW HIS PRIMARY CARE DOCTORS NAME BUT PT DOES. CM ASKED PT HIS PRIMARY CARE DOCTOR'S NAME, PT STATES "MOTION". SISTER ASKED CM TO FAX INFORMATION TO [facility] TO ASSIST WITH PT'S FOLLOW UP CARE AND SHE WILL WORK ON GETTING SOMEONE TO LAUNDRY AIDE PT TODAY. CM SPOKE TO PT AND ASKED PT IF HE WANTS TREATMENT FOR ALCOHOLISM, PT DID NOT ANSWER. CM ASKED PT WHAT HE DRINKS, PT STATES VODKA AND ASKED "WHY, DO YOU HAVE SOME?" CM ASKED HOW MUCH AND HOW OFTEN, PT STATES A LOT EVERY DAY. CM AGAIN ASKED PT IF HE WANTS TREATMENT. PT ASKED CM TO HELP HIM PULL UP HIS PANTS AND CONTINUED TO IGNORE THE QUESTION STATING THAT "YOU ARE KICKING ME OUT OF THE HOSPITAL. CM EXPLAINED THAT PT HAS BEEN TREATED AND CLEARED MEDICALLY AND FURTHER EXPLAINED THAT TO PT THAT IF HE WANTS HELP, HE NEEDS TO SEEK TREATMENT AT [facility] PERSONALLY AND HAS TO EXPRESS WILLINGNESS FOR TREATMENT FOR ALCOHOLISM IF HE WANTS IT. PT REPORTS UNDERSTANDING. CM ASKED PT IF HE WANTS RECORDS FAXED TO [facility], PT STATES YES, TO DR. MARTINEZ. BEDSIDE NURSE NOTIFIED. CM CALLED [facility], , SPOKE TO JOYCE WHO PROVIDED DR. AMANDA FAX OF [phone]. CM FAXED RECORDS REQUESTED. CM NOTIFIED PT WHO DENIES FURTHER NEEDS. STEFANO EDWARDS, CASE MANAGEMENT Appended by Stefano Edwards on 03/06/2019 14:32 CDT: CORRECTION: PT'S SISTER REPORTS FOLLOW UP APPOINTMENT AT [facility] TO BE 04-03-19. STEFANO EDWARDS, CASE MANAGEMENT Appended by Stefano Edwards on 03/06/2019 17:28 CDT: CM SPOKE TO BEDSIDE NURSE WHO INFORMED CM THAT PT'S FAMILY REFUSED TO LAUNDRY AIDE PT AT ABOUT 1700 HOURS STATING PT IS NOT ABLE TO TAKE CARE OF HIMSELF. BEDSIDE NURSE HAS EXPLAINED THAT PT IS STABLE AND WILL NOT BE TRANSFERRED TO [facility]. CM SPOKE TO PT IN ROOM, EXPLAINED ABOVE. PT REPORTS HE IS WEAK AND WOULD GO TO A NURSING FACILITY FOR REHAB TO GET STRONGER. CM EXPLAINED THAT CM WILL TRY BUT MAY NOT BE ABLE TO DO THIS FOR PT. PT REPORTS HAVING NO OTHER OPTIONS. CM PROVIDED PT WITH LISTING OF NURSING FACILITIES, PT SIGNED CONSENT FOR ANY NURSING FACILITY IN [place]. PT THINKS THE [facility] WOULD PAY FOR HIS NURSING CARE IF CM CAN FIND ONE THAT THE [facility] COV[facility]. CM NOTIFIED FELIX OF [facility], , OF REFERRAL. CM NOTIFIED DR. BARRIENTOS OF ABOVE INFORMATION AND ASKED IF WE COULD HAVE ORDER FOR PHYSICAL THERAPY EVALUATION. DR. ATKINS PROVIDED ORDER. BEDSIDE NURSE NOTIFIED. CM FAXED REFERRAL FOR REHAB SERVICES TO [facility] VIA FELIX AT [phone]. CM WAITING ADMISSION DETERMINATION FROM [facility]. STEFANO EDWARDS, CASE MANAGEMENT DCPIA - Discharge Planning Initial Assessment Updated by [id number]: Stefano Edwards on 03/06/19 1:00 pm * Is the patient Alert and Oriented? Yes * How many steps to enter\\exit or inside your home? * PCP [facility] * Pharmacy [facility] LOCAL PHARMACY * Preadmission Environment Home with Family * ADLs Independent * Equipment Cane Shower Chair Walker * Other Equipment [employer] - MEDICAL EQUIPMENT PROVIDER * List name and contact numbers for known caregivers / representatives who currently or will assist patient after discharge: EVY ANGELES, SISTER, * Verbal permission to speak to the caregivers and representatives has been obtained from the patient. Yes * Community resources currently utilized None * Please name any agencies selected above. NONE * Additional services required to return to the preadmission environment? No * Can the patient safely return to the preadmission environment? Yes * Has this patient been hospitalized within the prior 30 days at any hospital? No Coverage Notice Reviewer: [id number] Edwards Notice Issued Date-Time: 03/06/2019 9:45 Notice Type: IM Discharge Notice Notice Delivered To: Patient Relationship to Patient: Fax Machine Repairer Name: Delivery Method: HAND - Hand Delivered Tia Days: Prior Verbal Notification: Recipient Understood Notice: Yes Recipient Signature: Yes Med Rec Note Co-signed by Attending: Coverage Notice Comment: Reviewer: [id number] Edwards Notice Issued Date-Time: 03/06/2019 17:02 Notice Type: Patient Choice Letter Notice Delivered To: Patient Relationship to Patient: Fax Machine Repairer Name: Delivery Method: HAND - Hand Delivered Tia Days: Prior Verbal Notification: Recipient Understood Notice: Yes Recipient Signature: Yes Med Rec Note Co-signed by Attending: Coverage Notice Comment: ANY NURSING FACILITY IN [place] FOR REHAB. Last DP export: 03/07/19 7:32 a Patient Name: YULIET PADILLA Page [phone] at 1628 All edits/amendments must be made on the electronic document DICTATION DATE: 03/07/191627 MARKETING TECHNOLOGY COORDINATOR: VICKI 03/07/191627 RPT#: [id number] DC DATE: STATUS: ADM IN [facility] [address] [place] [address] END OF REPORT
[2019-03-07 16:36] VITALS: BP 142/86
--- NOTE | 2019-03-07 19:03 | NUR ---
PATIENT SITTING ON SIDE OF BED. NO DISTRESS NOTED. NO COMPLAINTS AT THIS TIME.
[2019-03-07 20:00] VITALS: BP 104/63
--- NOTE | 2019-03-07 23:50 | NUR ---
PATIENT LAYING IN BED. EYES CLOSED, CHEST RISING AND FALLING. NO DISTRESS NOTED.
[2019-03-08] VITALS: BP 156/103
--- NOTE | 2019-03-08 02:12 | NUR ---
PATIENT LAYING IN BED, EYES CLOSED, CHEST RISING AND FALLING. NO DISTRESS NOTED.
[2019-03-08 04:00] VITALS: BP 187/111
[2019-03-08 05:01] LABS: BASOPHILS 0.4 % (0-2); EOSINOPHILS 3.8 % (0-7); HEMATOCRIT 29.9 % (42.0-54.0); HEMOGLOBIN 10.1 g/dL (13.5-17.5); IMMATURE GRANULOCYTES 0.4 % (0-5); LYMPHOCYTES 23.5 % (15-50); MCH 26.3 pg (26.0-34.0); MCHC 33.8 g/dL (31.0-37.0); MCV 77.9 fL (80.0-100.0); MEAN PLATELET VOLUME 10.3 fL (7.4-10.4); MONOCYTES 12.4 % (2-11); NEUTROPHILS 59.5 % (40-80); PLATELET COUNT 150 10x3/uL (130-400); RBC 3.84 10x6/uL (4.20-6.10); RDW 20.9 % (11.5-14.5); WBC 5.2 10x3/uL (4.8-10.8)
[2019-03-08 05:09] LABS: ALBUMIN 2.3 g/dL (3.4-5.0); BILIRUBIN - TOTAL 0.66 mg/dL (0.2-1.3); CALCIUM 8.7 mg/dL (8.5-10.1); CARBON DIOXIDE 18.8 mmol/L (21.0-32.0); POTASSIUM - SERUM 4.8 mmol/L (3.5-5.1); PROTEIN - SERUM 7.4 g/dL (6.4-8.2)
--- NOTE | 2019-03-08 06:30 | NUR ---
PATIENT LAYING IN BED, EYES CLOSED, CHEST RISING AND FALLING. NO DISTRESS NOTED.
--- NOTE | 2019-03-08 07:37 | NUR ---
PT ASLEEP, DID NOT WAKE WHEN I ENTERED, DID NOT FURTHER DISTURB AT THIS TIME. CL INREACH, SRX2.
[2019-03-08 07:51] VITALS: BP 175/101
--- NOTE | 2019-03-08 10:14 | NUR ---
ATTEMPTED TO GIVE PT THEIR MEDICAITONS. PT NEVER ONCE OPENED HIS EYES AND I HAD TO GET MCD[place] WITH HIM TO MAKE HIM LISTEN TO ME AT ALL. WHEN PATIENT FINALLY SAT UP, HE KEPT FALLING BACKWARDS ASLEEP, I HAD TO HOLD HIM UP TO GIVE HIS MEDICATIONS. PT DIDNT SAY ANYTHING OTHER THAN "OK". TRIED TO PUT HI SPILLS IN HIS MOUTH BUT I HADN'T EVEN HANDED HIM HIS MEDICATION YET.
[2019-03-08 10:50] VITALS: BP 192/112
--- NOTE | 2019-03-08 12:33 | NUR ---
I have reviewed this patient and I concur with the Shift Assessment completed by the Licensed Practical Nurse today this shift.
[2019-03-08 15:16] VITALS: BP 191/114
--- NOTE | 2019-03-08 18:42 | NUR ---
PT LYIGN IN BED. HAS BEEN MORE AWAKE THIS AFTERNOON, EVEN SITTING IN CHAIR TO EAT SUPPER. NO COMPLAINTS OR CONCERNS AT THIS TIME. CL IN REACH, SRX2.
[2019-03-08 20:13] VITALS: BP 157/80
--- NOTE | 2019-03-08 22:24 | NUR ---
INITIAL ROUNDS COMPLETED AT 1915 HRS. PT INCONTINENT OF URINE. INCONTINENT CARE DONE. PT FOLLOWED DIREATIONS WELL BUT QUICKLY FELL BACK TO SLEEP. ASSESSMENT COMPLETED AT 2004 HRS. VSS. PT LETHARGIC, OPENS EYES TO VERBAL STIMULI, FOLLOWS COMMANDS AND ANSWERS APPROPRIATLY BUT QUICKLY FALLS BACK TO SLEEP. NO IV. LUNGS DIMINISHED IN BASES BILAT. SMITH. R GROIN CLEAN,DY AND INTACT WITHOUT SWELLING, BLEEDING OR BRUISING. PALPABLE PERIPHERAL PULSES. PM FSBS 218. 8 UNITS REG INSULIN GIVEN SUB-Q TO UPPER R ARM. PM MEDS GIVEN. PM SNACK SERVED. PT CURRENTLY RESTING WITH EYES CLOSED. RESP EVEN AND REGULAR. SR UP X2, CALL LIGHT AND URINAL WITHIN REACH.
--- NOTE | 2019-03-08 23:41 | NUR ---
PT RESTING WITH EYES CLOSED. RESP EVEN AND REGULAR. SR UP X2, CALL LIGHT WITHIN REACH.
[2019-03-09] VITALS (7 sets, daily range): BP systolic 133–160; BP diastolic 71–97
--- NOTE | 2019-03-09 02:01 | NUR ---
PT AWAKE; DENIES ANY DISCOMFORT. CRANBERRY JUICE AND A SNACK GIVEN PER REQUEST. SR UP X2, CALL LIGHT WITHIN REACH.
--- NOTE | 2019-03-09 04:34 | NUR ---
PT INCONTINENT OF URINE. INCONTINENT CARE DONE. BED LINENS CHANGED. SR UP X2, CALL LIGHT WITHIN REACH.
--- NOTE | 2019-03-09 05:17 | NUR ---
VSS. BEDBATH DONE. SR UP X2, CALL LIGHT WITHIN REACH.
[2019-03-09 05:25] LABS: BASOPHILS 0.4 % (0-2); EOSINOPHILS 3.5 % (0-7); HEMATOCRIT 28.9 % (42.0-54.0); HEMOGLOBIN 9.7 g/dL (13.5-17.5); IMMATURE GRANULOCYTES 0.2 % (0-5); LYMPHOCYTES 19.7 % (15-50); MCH 26.3 pg (26.0-34.0); MCHC 33.6 g/dL (31.0-37.0); MCV 78.3 fL (80.0-100.0); MEAN PLATELET VOLUME 10.3 fL (7.4-10.4); MONOCYTES 12.7 % (2-11); NEUTROPHILS 63.5 % (40-80); PLATELET COUNT 174 10x3/uL (130-400); RBC 3.69 10x6/uL (4.20-6.10); RDW 21.1 % (11.5-14.5); WBC 4.9 10x3/uL (4.8-10.8)
[2019-03-09 05:45] LABS: ALBUMIN 2.2 g/dL (3.4-5.0); ANION GAP 16.1 mmol/L (8-16); BILIRUBIN - TOTAL 0.52 mg/dL (0.2-1.3); CALCIUM 8.4 mg/dL (8.5-10.1); CARBON DIOXIDE 19.4 mmol/L (21.0-32.0); CREATININE - SERUM 2.9 mg/dL (0.6-1.3); POTASSIUM - SERUM 4.5 mmol/L (3.5-5.1); PROTEIN - SERUM 7.1 g/dL (6.4-8.2)
--- NOTE | 2019-03-09 06:23 | NUR ---
VSS THROUGHOUT NIGHT. PT DENIED ANY DISCOMFORT. AM FSBS 236. 8 UNITS REG INSULIN GIVEN SUB-Q TO UPPER R ARM. NEEDS MET; WILL CONTINUE TO MONITOR.
--- NOTE | 2019-03-09 07:35 | NUR ---
PT ASLEEP, DID NOT WAKE WHEN I ENTERED, DID NOT FURTHER DISTURB AT THIS TIME. CL IN REACH.
--- NOTE | 2019-03-09 15:59 | NUR ---
I have reviewed this patient and I concur with the Shift Assessment completed by the Licensed Practical Nurse today this shift.
--- NOTE | 2019-03-09 16:39 | NUR ---
PT IS STATING THAT HE IS UNABLE TO FIND HIS PHONE AND IS SAYING SOMEONE MUST HAVE STOLEN IT. AID ESTEBAN HAD HIM YESTERDAY STATED TAHT HE DID HAVE HIS PHONE YESTERDAY, SHE SAW IT IN ROOM. I HAVE CHANGED HIS LINNENS TO DAY AND HAVE NOT PERSONALLY SEEN IT. ESTEBAN MUHAMMAD, UZMA (RT), AND MYSELF HAVE SEARCHED ROOM AND ARE CURRENTLY UNABLE TO FIND IT. PT IS WANTING THE POLICE CALLED AND REPORTS MADE. INFORMED HOUSE SUPERVISER TAVO AND SECURITY WILL CHECK AGAIN.
--- NOTE | 2019-03-09 16:44 | NUR ---
FIRE DEPARTMENT BATTALION CHIEF/SECURTITY UNABLE TO FIND PHONE WELL. FIRE DEPARTMENT BATTALION CHIEF IS TRYING TO GET [facility] TO CHECK TO MAKE SURE IT WASN'T THROWN OUT LAST NIGHT.
--- NOTE | 2019-03-09 18:04 | NUR ---
I have reviewed this patient and I concur with the Shift Assessment completed by the Licensed Practical Nurse today this shift.
--- NOTE | 2019-03-09 20:40 | NUR ---
INITIAL ROUNDS COMPLETED AT 1910 HRS. PT RESTING WITH EYES CLOSED. RESP EVEN AND REAGULAR. ASSESSMENT COMPLETED AT 1930 HRS. VSS. PT LETHATGIC. OPENS EYES TO VERBAL STIMULI, ANSWERS QUESTIONS APPROPRIATELY THEN QUICKLY FALLS BACK TO SLEEP. LUNGS DIMINISHED IN BASES BILAT. NO IV ACCESS. SR UP X2, CALL LIGHT WITHIN REACH.
--- NOTE | 2019-03-09 22:52 | NUR ---
PT INCONTINENT OF URINE. INCONTINENT CARE DONE. BED LINENS CHANGED. SR UP X2, CALL LIGHT WITHIN REACH.
--- NOTE | 2019-03-10 00:54 | NUR ---
PT RESTING WITH EYES CLOSED. RESP EVEN AND REGULAR. SR UP X2, CALL LIGHT WITHIN REACH.
--- NOTE | 2019-03-10 02:36 | NUR ---
PT RESTING WITH EYES CLOSED. RESP EVEN AND REGULAR. SR UP X2, CALL LIGHT WITHIN REACH.
[2019-03-10 03:25] VITALS: BP 156/91
[2019-03-10 03:59] LABS: BASOPHILS 0.4 % (0-2); EOSINOPHILS 3.3 % (0-7); HEMATOCRIT 29.6 % (42.0-54.0); HEMOGLOBIN 9.9 g/dL (13.5-17.5); IMMATURE GRANULOCYTES 0.2 % (0-5); LYMPHOCYTES 30.9 % (15-50); MCH 26.4 pg (26.0-34.0); MCHC 33.4 g/dL (31.0-37.0); MCV 78.9 fL (80.0-100.0); MONOCYTES 14.7 % (2-11); NEUTROPHILS 50.5 % (40-80); PLATELET COUNT 185 10x3/uL (130-400); RBC 3.75 10x6/uL (4.20-6.10); RDW 21.3 % (11.5-14.5); WBC 5.1 10x3/uL (4.8-10.8)
[2019-03-10 04:04] LABS: ALBUMIN 2.4 g/dL (3.4-5.0); ANION GAP 15.2 mmol/L (8-16); BILIRUBIN - TOTAL 0.55 mg/dL (0.2-1.3); CALCIUM 8.3 mg/dL (8.5-10.1); CARBON DIOXIDE 21.6 mmol/L (21.0-32.0); CREATININE - SERUM 2.6 mg/dL (0.6-1.3); POTASSIUM - SERUM 4.8 mmol/L (3.5-5.1); PROTEIN - SERUM 7.1 g/dL (6.4-8.2)
--- NOTE | 2019-03-10 05:11 | NUR ---
PT UP TO BR WITH ASSIST X1 AND WALKER. PT URINATED AND DEFECATED. ASSISTED BACK TO BED. GAIT UNSTEADY. SR UP X2, CALL LIGHT WITHIN REACH.
--- NOTE | 2019-03-10 06:00 | NUR ---
VSS THROUGHOUT NIGHT. PT DENIED ANY DISCOMFORT. NEEDS MET; WILL CONTINUE TO MONITOR.
--- NOTE | 2019-03-10 07:48 | NUR ---
PT RESTING COMFORTABLY IN BED, COVERED COMPLETE FROM HEAD TO TOE. NAD NOTED, CALL LIGHT IN REACH, BEDSIDE RAILS X2, NAD NOTED, WILL CONTINUE PLAN OF CARE.
--- NOTE | 2019-03-10 08:43 | NUR ---
AM MEDS GIVEN AT THIS TIME. LYRICA HELD DUE TO PT BEING LETHARGIC. GRADES 1 THRU 6 VISITING TEACHER AT BEDSIDE FEEDING PT. PT AWAKE BUT KEEPS EYES CLOSED, CAN FOLLOW COMMANDS BUT IS SLOW TO RESPOND. PT DENIES ANY NEEDS AT THIS TIME. CALL LIGHT IN REACH, BEDSIDE RAILS X2, NAD NOTED, WILL CONTINUE PLAN OF CARE.
[2019-03-10 09:00] VITALS: BP 170/69
--- NOTE | 2019-03-10 11:29 | NUR ---
BLOOD SUGAR OF 126, NO COVERAGE NEEDED PER S/S. PT DENIES ANY NEEDS AT THIS TIME. CALL LIGHT IN REACH, NAD NOTED,W ILL CONTINUE TO MONITOR.
--- NOTE | 2019-03-10 11:59 | NUR ---
0.1MG OF CLONODIN GIVEN FOR HIGH BP.
[2019-03-10 12:25] VITALS: BP 181/107
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
--- NOTE | 2019-03-10 16:40 | NUR ---
BLOOD SUGAR OF 176, 4UNITS OF HUMULIN GIVEN PER S/S. ALSO GAVE PT HIS BP MED AND WILL RECHECK BP IN 1HR. PT DENIES ANY NEEDS AT THIS TIME, CALL LIGHT IN REACH, NAD NOTED.
--- NOTE | 2019-03-10 19:40 | NUR ---
PT LYING IN BED. CALL LIGHT IN REACH. PT DENIES NEEDS OR PAIN. BED IN LOW SIDE RAILS X2. PT IS ALERT BUT ORIENTATED X2. HE IS DROWSY AND UNSTEADY WHEN AMBULATING. PT INCONT X2 AT TIMES. LUNGS CLEAR. BOWEL ACTIVE X4. WILL CONTINUE TO MONITOR.
[2019-03-10 20:00] VITALS: BP 178/103
[2019-03-11] VITALS: BP 164/99
--- NOTE | 2019-03-11 03:46 | NUR ---
PT RESTING QUIETLY CALL LIGHT IN REACH. NO SIGNS OF DISTRESS OR PAIN. PT HAS BEEN WITNESSED GETTING UP AND WALKING OUT INTO HALLWAY INSTEAD OF PUSHING CALL LIGHT. WCTM.
[2019-03-11 04:00] VITALS: BP 185/100
--- NOTE | 2019-03-11 04:25 | NUR ---
I have reviewed this patient and I concur with the Shift Assessment completed by the Licensed Practical Nurse today this shift.
--- NOTE | 2019-03-11 05:54 | NUR ---
TECH REPORTED BP WAS 185/100. PRN CLONIDINE GIVEN PER ORDERS ON WCTM
[2019-03-11 06:27] LABS: BASOPHILS 0.4 % (0-2); EOSINOPHILS 2.9 % (0-7); HEMATOCRIT 29.2 % (42.0-54.0); HEMOGLOBIN 9.7 g/dL (13.5-17.5); LYMPHOCYTES 24.3 % (15-50); MCH 26.1 pg (26.0-34.0); MCHC 33.2 g/dL (31.0-37.0); MCV 78.7 fL (80.0-100.0); MEAN PLATELET VOLUME 10.1 fL (7.4-10.4); MONOCYTES 17.8 % (2-11); NEUTROPHILS 54.6 % (40-80); PLATELET COUNT 188 10x3/uL (130-400); RBC 3.71 10x6/uL (4.20-6.10); WBC 4.6 10x3/uL (4.8-10.8)
[2019-03-11 06:48] LABS: ALBUMIN 2.5 g/dL (3.4-5.0); ANION GAP 12.2 mmol/L (8-16); BILIRUBIN - TOTAL 0.55 mg/dL (0.2-1.3); CALCIUM 8.8 mg/dL (8.5-10.1); CARBON DIOXIDE 24.5 mmol/L (21.0-32.0); CREATININE - SERUM 2.3 mg/dL (0.6-1.3); POTASSIUM - SERUM 4.7 mmol/L (3.5-5.1); PROTEIN - SERUM 7.4 g/dL (6.4-8.2)
[2019-03-11 07:47] VITALS: BP 174/101
--- NOTE | 2019-03-11 08:00 | NUR ---
RECEIVED A/A/OX4. NO COMPLAINTS OR REQUESTS VOICED. SAT UP ON SIDE OF BED FOR BREAKFAST. ASSESSMENT COMPLETED AND WILL CONTINUE POC
--- NOTE | 2019-03-11 08:49 | OP ---
PATIENT NAME: YULIET PADILLA MEDICAL RECORD: [id number] :[birth year] LOCATION:D.M2 D.2111 ADMISSION DATE:03/03/19 SURGEON: ANABEL TUBBS MD DATE OF OPERATION: 03/05/2019 PROCEDURE: Left heart catheterization, selective coronary angiography, femoral artery approach. CATHETERS: A 5-Mongolian sheath, 5/4 left and right Sofia, 5/4 pig. The procedure was well tolerated. The patient was returned to denson, sheath removed. ExoSeal device was placed. FINDINGS: Left ventriculography in 30-degree MEJIA view shows severe global hypokinesis. Basically inferior akinesis, EF 20% to 25%. CORONARY ANATOMY: LEFT MAIN: Left main is free of disease. LAD: An area of previous stenting is widely patent. Severe distal disease at the apex is described previously not amenable to transcatheter revascularization. CIRCUMFLEX: Stent is widely patent with SOMMER flow 3 distally, small terminal OM with severe diffuse disease, not amenable to coronary intervention. RIGHT CORONARY ARTERY: No flow obstructive stenosis. IMPRESSION: Distal disease, not amenable to transcatheter revascularization. Cardiomyopathy described above. TRANSINT:[id number] Voice Confirmation ID: [id number] DOCUMENT ID: [id number] ANABEL TUBBS MD at 0849 CC: [id number] DICTATION DATE: 03/05/19 1547 GRAINING OPERATOR: 03/05/19 1624 ADM IN [facility] [address] [place] [id number]
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
[2019-03-11 12:18] VITALS: BP 200/120
--- NOTE | 2019-03-11 14:32 | NUR ---
Nutrition follow-up: ADA consistent CHO PO intake ~50% of meals Labs reviewed Wt: 197# +BM RDN following.
--- NOTE | 2019-03-11 17:26 | MORECARE ---
CASE MANAGEMENT DISCHARGE SUMMARY PATIENT: YULIET PADILLA UNIT: [id number] ADM DATE: 03/03/19 AGE: 63 : 53 SEX: M ROOM/BED: D.2111 AUTHOR: HOWARDDOC PHYSICIAN: REFERRING PHYSICIAN: KORI OCHOA MD DATE OF SERVICE: 03/11/19 Discharge Plan Patient Name: YULIET PADILLA Facility: [facility]:[employer] : 1955 Planned Disposition: Shelter Facility Anticipated Discharge Date: 03/11/19 Discharge Date: Expected LOS: 8 Initial Reviewer: [id number] Initial Review Date: 03/06/2019 Generated: 03/11/19 6:26 pm Comments DCP- Discharge Planning Updated by [id number]: Stefano Edwards on 03/11/19 4:[address] Patient Name: YULIET PADILLA Encounter No: [id number] : 1955 Primary Insurance: [employer] Anticipated DC Date: 03-11-2019 Planned Disposition: Shelter Facility External Planned Provider: [facility] OR [facility] DCP follow-up note: CM FAXED REFERRAL UPDATE TO [facility] AT [phone]. CM FAXED REFERRAL UPDATE [place] [facility] [place] [facility] [place] AT [phone]. CM SPOKE TO PT IN ROOM. PT AWAKE AND TALKING TODAY. PT EATING BREAKFAST. PT IS POLITE AND ABLE TO CARRY ON CONVERSATION WITH CM. CM DISCUSSED FAMILY REFUSAL TO TAKE HOME UNTIL PT IS STRONGER. PT AGREES TO PARTICIPATE IN THERAPY SERVICES. PT IS NOT INTERESTED IN CORRECTION ASSISTED CARE. PT IS WILLING FOR [place] OR [facility] [place] SHORT [facility]M REH[facility]. PT IS NOT INTERESTED IN ALCOHOL TREATMENT PROGRAM. CM WAITING ADMISSION DETERMINATIONS FROM [facility] AND [facility] WHO WILL REASSESS PT WHEN HE IS ABLE TO STAY AWAKE AND PARTICIPATE IN THERAPY AND ASSESSMENT FOR REHAB PLACEMENT. Stefano Edwards, CASE MANAGEMENT Appended by Stefano Edwards on 03/11/2019 17:19 CDT: CM SPOKE TO FELIX OF THE [facility], SHE MET WITH PT THIS MORNING AND SHE HAS FORWARDED THE REFERRAL UPDATE TO THE [facility] [place]. PT TOLD FELIX HE IS WILLING FOR REHAB PLACEMENT. CM SPOKE TO PT AND ENCOURAGED PT TO PARTICIPATE WITH REHAB EACH TIME OFFERED. PT PROMISED TO PARTICIPATE. CM WAITING ADMISSION DETERMINATIONS FROM [facility] AND [facility]. JANNET Cherry DCP- Discharge Planning Updated by [email or web address]: Stefano Edwards on 03/10/19 1:[address] Patient Name: YULIET PADILLA Encounter No: [id number] : 1955 Primary Insurance: [facility] Anticipated DC Date: 03-11-2019 Planned Disposition: Shelter Facility External Planned Provider:[facility] OR [facility] DCP follow-up note: CM SPOKE TO KHALIDA DUGGAN OF [place] [facility], ,THEY HAVE RECEIVED REFERRAL AND NEED TO SEE MORE THERAPY NOTES. CM [facility]ED [facility] AT [phone]. CM FAXED REFERRAL UPDATE TO [facility] [place] [facility] [place] AT [phone]. CM WAITING ADMISSION DETERMINATIONS FROM [facility] AND [facility] WHO WILL REASSESS PT WHEN HE IS ABLE TO STAY AWAKE AND PARTICIPATE IN THERAPY AND ASSESSMENT FOR REHAB PLACEMENT. JANNET Cherry DCP- Discharge Planning Updated by [id number]: Stefano Edwards on 03/07/19 3:[address] Patient Name: YULIET PADILLA Encounter No: [id number] : 1955 Primary Insurance: [facility] Anticipated DC Date: 03-07-2019 Planned Disposition: Shelter Facility External Planned Provider:[facility] OR [facility] DCP follow-up note: CM SPOKE TO FELIX OF THE [facility] [place] WHO IS HERE TO ASSESS PT. CM MET WITH PT AND FELIX IN ROOM. PT VERY SLEEPY AND WAS NOT ABLE TO STAY AWAKE FOR ASSESSMENT. FELIX INFORMED CM THAT SHE WOULD COME BACK AND REASSESS FOR REHAB WHEN PT IS ABLE TO STAY AWAKE AND PARTICIPATE. JAROD LUCIANO NOTIFIED. CM SPOKE TO LIZY OF INPATIENT REHAB, PT IS NOT APPROPRIATE FOR INPATIENT REHAB AT [facility]. CM RECEIVED EMAIL FROM KHALIDA DUGGAN OF [place] [facility], THEY HAVE RECEIVED REFERRAL. CM CALLED KHALIDA AT [phone], SHE HAD LEFT FOR THE DAY. CM FAXED REFERRAL UPDATE WITH PHYSICAL THERAPY EVALUATION TO [facility] AT [phone]. CM HAS FAXED REFERRAL UPDATE WITH PHYSICAL THERAPY EVALUATION TO [facility] [place] [facility] [place] AT [phone]. CM WAITING ADMISSION DETERMINATIONS FROM [facility] AND [facility] [place] [place] [facility] WHO WILL REASSESS PT WHEN HE IS ABLE TO STAY AWAKE AND PARTICIPATE IN THERAPY AND ASSESSMENT FOR REHAB PLACEMENT. JANNET Cherry MANAGEMENT DCP- Discharge Planning Updated by [id number]: Stefano Edwards on 03/07/19 7:[address] Patient Name: YULIET PADILLA Encounter No: [id number] : 1955 Primary Insurance: [facility] Anticipated DC Date: 03-07-2019 Planned Disposition: Shelter Facility OR INPATIENT REHAB External Planned Provider: [facility] OR [facility] DCP follow-up note: CM RECEIVED INPATIENT REHAB PRESCREENING. CM SPOKE TO PT IN ROOM AND DISCUSSED REHAB OPTIONS. PT STATES HE WOULD RATHER STAY AT [facility] FOR REHAB IF POSSIBLE, SECOND CHOICE OF [facility] FOR INPATIENT REHAB WITH THIRD CHOICE BEING THE [facility] [place] [facility]. PT VERY SLEEPY AND HAVING HARD TIME STAYING AWAKE, QUESTIONS HAD TO BE ASKED SEVERAL TIMES. CM FAXED REFERRAL TO [facility] AT [phone]. CM HAS FAXED REFERRAL TO THE [facility] [place] LAST EVENING. CM WAITING PHYSICAL THERAPY EVALUATION RESULTS AND WILL FAX THEM TO [place] [facility] AND THE [facility] [place]. CM WILL ALSO FOLLOW UP WITH [facility]. JANNET Cherry DCP- Discharge Planning Updated by [id number]: Stefano Edwards on 03/06/19 4:[address] Patient Name: YULIET PADILLA Admission Status: ER Accout number: [id number] Admission Date: 03-03-2019 : 1955 Admission Diagnosis:SHORTNESS OF BREATH Attending: KORI OCHOA Current LOS: 3 Anticipated DC Date: 03-06-2019 Planned Disposition: Home Primary Insurance: [facility] Discharge Planning Comments: CM MET WITH PT IN ROOM TO DISCUSS DISCHARGE PLANNING AND NEEDS. PT REPORTS LIVING AT HOME INDEPENDENTLY WITH HIS SISTER. PT HAS CANE, SHOWER CHAIR AND WALKER FROM THE [place]. [place]. PT ITIALLY STATES [facility] AND WOULD TRANSFER "IF NECESSARY". CHART REVIEW INDICATED PT REFUSED TRANSFER IN ER, CM ASKED PT ABOUT TRANSFER TO [place] [facility] AGAIN, PT ACKNOWLEDGED HE DID REFUSE AND DOES NOT WANT TO TRANSFER TO THE [place] NOW. CM EXPLAINED PT HAS MEDICARE A ONLY AND WOULD HAVE COPAY. PT REPORTED UNDERSTANDING. PT HAS NO OUTSIDE SERVICES ASSISTING IN THE HOME. CM DISCUSSED AVAILABILITY OF HOME HEALTH, REHAB SERVICES AND MEDICAL EQUIPMENT. PT DENIES DISCHARGE NEEDS, REPORTS HIS SISTER WILL PICK HIM UP FOR DISCHARGE HOME. IMPORTANT MESSAGE FROM MEDICARE PROVIDED AND EXPLAINED. PRINCIPAL RESEARCH ECONOMIST NURSE NOTIFIED. Marketing Strategist: Stefano Edwadrs Appended by Stefano Edwards on 03/06/2019 13:28 CDT: CM RECEIVED REQEUST FROM BEDSIDE NURSE, PT REQEUSTED TO SEE AIRPLANE CABIN ATTENDANT FOR REASON UNKNOWN TO NURSE. CM MET WITH PT IN ROOM. PT REPORTS HE IS TOO WEAK TO GO HOME, CM DISCUSSED REHAB OPTIONS, PT STATES HE IS NOT GOING TO ASSISTED OR REHAB. PT STATES HE WANTS TO STAY IN THE HOSPITAL. CM EXPLAINED TO PT IF HE IS TOO WEAK TO GO HOME, HE IS NOT GOING TO GET STRONGER SLEEPING IN THE HOSPITAL BED AND NEEDS REHAB AND THERAPY. PT STATES HE IS GOING HOME AND TO CALL HIS SISTER. CM POINTED OUT THAT PT HAS CELL PHONE ON BEDSIDE TABLE AND HAS ABILITY TO USE IT HIMSELF. PT ASKED CM AGAIN TO CALL HIS SISTER TO PICK HIM UP. CM CALLED [facility] [facility], , LEFT MESSAGE ASKING FOR PT'S TRANSPORTATION HOME AND ASKING FOR RETURN CALL TO . PT NOTIFIED. BEDSIDE NURSE NOTIFIED. STEFANO EDWARDS, CASE MANAGEMENT Appended by Stefano Edwards on 03/06/2019 14:09 CDT: CM SPOKE TO PT IN ROOM, INFORMED HIM THAT CM LEFT MESSAGE FOR HIS SISTER AT HOME. PT REPORTS HIS SISTER IS AT WORK, CALLED HIS SISTER VIA CELL PHONE AT [phone]. EVY REPORTS TO BE PT'S SISTER AND INFORMED CM THAT [facility]. CM EXPLAINED THAT PT REFUSED TRANSFER TO [place]. PT'S SISTER STATES THAT PT HAS SUBSTANCE ABUSE PROBLEM AND SHE WOULD LIKE TO GET HIM TO THE [place] FOR TREATMENT. CM EXPLAINED THAT PT MUST REQUEST SERVICES AND BE WILLING FOR THE TREATMENT. SISTER REPORTS THAT PT HAS APPOINTMENT AT [place] ON 03-04. SHE DOES NOT KNOW HIS PRIMARY CARE DOCTORS NAME BUT PT DOES. CM ASKED PT HIS PRIMARY CARE DOCTOR'S NAME, PT STATES "MICHELLE". SISTER ASKED CM TO FAX INFORMATION TO [place] TO ASSIST WITH PT'S FOLLOW UP CARE AND SHE WILL WORK ON GETTING SOMEONE TO ASSISTANT PRESS OPERATOR PT TODAY. CM SPOKE TO PT AND ASKED PT IF HE WANTS TREATMENT FOR ALCOHOLISM, PT DID NOT ANSWER. CM ASKED PT WHAT HE DRINKS, PT STATES VODKA AND ASKED "WHY, DO YOU HAVE SOME?" CM ASKED HOW MUCH AND HOW OFTEN, PT STATES A LOT EVERY DAY. CM AGAIN ASKED PT IF HE WANTS TREATMENT. PT ASKED CM TO HELP HIM PULL UP HIS PANTS AND CONTINUED TO IGNORE THE QUESTION STATING THAT "YOU ARE KICKING ME OUT OF THE HOSPITAL. CM EXPLAINED THAT PT HAS BEEN TREATED AND CLEARED MEDICALLY AND FURTHER EXPLAINED THAT TO PT THAT IF HE WANTS HELP, HE NEEDS TO SEEK TREATMENT AT [place] PERSONALLY AND HAS TO EXPRESS WILLINGNESS FOR TREATMENT FOR ALCOHOLISM IF HE WANTS IT. PT REPORTS UNDERSTANDING. CM ASKED PT IF HE WANTS RECORDS FAXED TO [place], PT STATES YES, TO DR. MARTINEZ. BEDSIDE NURSE NOTIFIED. CM CALLED [facility], , SPOKE TO JOYCE WHO PROVIDED DR. AMANDA FAX OF [phone]. CM FAXED RECORDS REQUESTED. CM NOTIFIED PT WHO DENIES FURTHER NEEDS. STEFANO EDWARDS, CASE MANAGEMENT Appended by Stefano Edwards on 03/06/2019 14:32 CDT: CORRECTION: PT'S SISTER REPORTS FOLLOW UP APPOINTMENT AT [place] TO BE 04-03-19. STEFANO EDWARDS, CASE MANAGEMENT Appended by Stefano Edwards on 03/06/2019 17:28 CDT: CM SPOKE TO BEDSIDE NURSE WHO INFORMED CM THAT PT'S FAMILY REFUSED TO ASSISTANT PRESS OPERATOR PT AT ABOUT 1700 HOURS STATING PT IS NOT ABLE TO TAKE CARE OF HIMSELF. BEDSIDE NURSE HAS EXPLAINED THAT PT IS STABLE AND WILL NOT BE TRANSFERRED TO [place]. CM SPOKE TO PT IN ROOM, EXPLAINED ABOVE. PT REPORTS HE IS WEAK AND WOULD GO TO A NURSING FACILITY FOR REHAB TO GET STRONGER. CM EXPLAINED THAT CM WILL TRY BUT MAY NOT BE ABLE TO DO THIS FOR PT. PT REPORTS HAVING NO OTHER OPTIONS. CM PROVIDED PT WITH LISTING OF NURSING FACILITIES, PT SIGNED CONSENT FOR ANY NURSING FACILITY IN [place]. PT THINKS THE [place] WOULD PAY FOR HIS NURSING CARE IF CM CAN FIND ONE THAT THE [place] COVERS. CM NOTIFIED FELIX OF [facility], , OF REFERRAL. CM NOTIFIED DR. BARRIENTOS OF ABOVE INFORMATION AND ASKED IF WE COULD HAVE ORDER FOR PHYSICAL THERAPY EVALUATION. DR. ATKINS PROVIDED ORDER. BEDSIDE NURSE NOTIFIED. CM FAXED REFERRAL FOR REHAB SERVICES TO [facility] [place] AT [phone]. CM WAITING ADMISSION DETERMINATION FROM THE [facility] [place]. STEFANO EDWARDS, CASE MANAGEMENT DCPIA - Discharge Planning Initial Assessment Updated by [id number]: Stefano Edwards on 03/06/19 1:00 pm * Is the patient Alert and Oriented? Yes * How many steps to enter\\exit or inside your home? * PCP [facility] * Pharmacy [place] ORDER NO LOCAL PHARMACY * Preadmission Environment Home with Family * ADLs Independent * Equipment Cane Shower Chair Walker * Other Equipment [employer] PROVIDER * List name and contact numbers for known caregivers / representatives who currently or will assist patient after discharge: SISTER VALDOVINOS, * Verbal permission to speak to the caregivers and representatives has been obtained from the patient. Yes * Community resources currently utilized None * Please name any agencies selected above. NONE * Additional services required to return to the preadmission environment? No * Can the patient safely return to the preadmission environment? Yes * Has this patient been hospitalized within the prior 30 days at any hospital? No Coverage Notice Reviewer: [email or web address] Edwards Notice Issued Date-Time: 03/06/2019 9:45 Notice Type: IM Discharge Notice Notice Delivered To: Patient Relationship to Patient: Pickle Maker Name: Delivery Method: HAND - Hand Delivered Tia Days: Prior Verbal Notification: Recipient Understood Notice: Yes Recipient Signature: Yes Med Rec Note Co-signed by Attending: Coverage Notice Comment: Reviewer: [id number] Edwards Notice Issued Date-Time: 03/06/2019 17:02 Notice Type: Patient Choice Letter Notice Delivered To: Patient Relationship to Patient: Pickle Maker Name: Delivery Method: HAND - Hand Delivered Tia Days: Prior Verbal Notification: Recipient Understood Notice: Yes Recipient Signature: Yes Med Rec Note Co-signed by Attending: Coverage Notice Comment: ANY NURSING FACILITY IN [place] FOR REHAB. Last DP export: 03/11/19 7:51 a Patient Name: YULIET PADILLA Page [id number] at 1726 All edits/amendments must be made on the electronic document DICTATION DATE: 03/11/191724 REMNANT SORTER: VICKI 03/11/191724 RPT#: [id number] DC DATE: STATUS: ADM IN [facility] [address] [place] [address] END OF REPORT
--- NOTE | 2019-03-11 17:36 | NUR ---
I have reviewed this patient and I concur with the Shift Assessment completed by the Licensed Practical Nurse today this shift.
--- NOTE | 2019-03-11 19:16 | NUR ---
PT REST IN BED, CALL LIGHT IN REACH.
[2019-03-11 19:25] VITALS: BP 188/111
[2019-03-11 20:00] VITALS: BP 205/117
--- NOTE | 2019-03-11 20:18 | NUR ---
PT'S BP 205/117.CLONIDINE 0.1MG GIVEN ORDERED.
[2019-03-12] VITALS: BP 192/116
--- NOTE | 2019-03-12 02:55 | NUR ---
RECHECKED PT BP 176/104.
[2019-03-12 04:00] VITALS: BP 176/104
[2019-03-12 06:47] LABS: BASOPHILS 0.4 % (0-2); HEMATOCRIT 30.4 % (42.0-54.0); HEMOGLOBIN 10.1 g/dL (13.5-17.5); IMMATURE GRANULOCYTES 0.2 % (0-5); LYMPHOCYTES 18.8 % (15-50); MCH 26.4 pg (26.0-34.0); MCHC 33.2 g/dL (31.0-37.0); MCV 79.4 fL (80.0-100.0); MEAN PLATELET VOLUME 9.7 fL (7.4-10.4); MONOCYTES 18.3 % (2-11); NEUTROPHILS 58.3 % (40-80); PLATELET COUNT 192 10x3/uL (130-400); RBC 3.83 10x6/uL (4.20-6.10); RDW 21.2 % (11.5-14.5); WBC 4.5 10x3/uL (4.8-10.8)
[2019-03-12 07:05] LABS: ALBUMIN 2.5 g/dL (3.4-5.0); ANION GAP 16.8 mmol/L (8-16); BILIRUBIN - TOTAL 0.82 mg/dL (0.2-1.3); CARBON DIOXIDE 20.6 mmol/L (21.0-32.0); POTASSIUM - SERUM 4.4 mmol/L (3.5-5.1); PROTEIN - SERUM 7.8 g/dL (6.4-8.2)
[2019-03-12 07:08] LABS: CREATININE - SERUM 1.7 mg/dL (0.6-1.3)
--- NOTE | 2019-03-12 08:00 | NUR ---
RECEIVED A/A/OX4. SITTING UP ON SIDE OF BED EATING BREAKFAST. NO REQUESTS VOICED AND DENIES ANY PAIN OR DISCOMFORT. ASSESSMENT COMPLETED AND WILL CONTINUE POC. HELD HIS LYRICA DUE TO PT BEING SO SLEEPY DURING THE DAY.
--- NOTE | 2019-03-12 09:20 | NUR ---
B/P 192/118. CLONIDINE 0.1 MG GIVEN PO.
[2019-03-12 09:21] VITALS: BP 192/118
--- NOTE | 2019-03-12 10:38 | EC ---
PATIENT:YULIET PADILLA DATE OF SERVICE: 03/02/19 SEX: M MEDICAL RECORD: [id number] DATE OF : [birth year] LOCATION:D.M2 D.211 AGE OF PATIENT: 63 ADMISSION DATE: 03/03/19 REFERRING PHYSICIAN: INTERPRETING PHYSICIAN: AYAN VILLA MD ECHOCARDIOGRAM REPORT ECHO CHARGES 4 ECHO COMPLETE Date: 03/03/19 CLINICAL DIAGNOSIS: CHF ECHOCARDIOGRAPHIC MEASUREMENTS (adult normal given) AC root (d.<3.7cm) 3.9 cm LV Septum d (<1.2 cm> 1.8 cm Valve Excursion 2.4 cm LV Septum (systole) 2.3 cm Left Atria (s.<4.0cm> 4.4 cm LVPW d(<1.2cm) 1.6 cm RV (d.<2.3cm) 2.8 cm LVPW (sytole) 2.3 cm LV diastole(<5.6CM) 5.3 cm MV E-F(>70mm/sec) cm LV systole 3.3 cm LVOT Diameter 2.0 cm MV exc.(>10mm) cm Est.ejection fraction (50-75%) % DOPPLER: LVIT cm/sec A 65.0 cm/sec E 98.0 cm/sec LA cm/sec RVSP 44.0 mmHg LVOT 85.0 cm/sec AOP1/2T m/s Asc. Ao 127 cm/sec RVOT 71.0 cm/sec RA cm/sec PA 101 cm/sec AV Gradient Peak 6.4 mmHg AV Mean 3.2 mmHg AV Area 2.0 cm MV Gradient Peak 5.5 mmHg MV Mean 2.0 mmHg MV Area cm COMMENTS: Md Psychiatry: Evelia RINGOE Manager Media: 1 Dr. Villa TAPE# PACS Pericardial Effusion N DATE OF SERVICE: 03/03/2019 PROCEDURE: Echocardiogram. FINDINGS: 1. Left ventricular chamber size is within normal limits. Left ventricular systolic function is normal. Overall ejection fraction estimated at 50%. 2. Left atrium is enlarged at 4.4 cm. Right atrium and right ventricular chamber sizes are as well mildly dilated. 3. Valvular structures have normal structure and motion. ECHOCARDIOGRAM REPORT [id number] YULIET PADILLA 4. Doppler interrogation reveals moderate mitral regurgitation, moderate tricuspid regurgitation, no other valvular insufficiency or stenosis. Pulmonary systolic pressure is estimated at 44 mmHg. 5. No evidence of pericardial effusion or left ventricular thrombus. TRANSINT:[id number] Voice Confirmation ID: [id number] DOCUMENT ID: [id number] AYAN VILLA MD at 1038 CC: [id number] DICTATION DATE: 03/03/19 1233 MECHATRONICS ENGINEER: 03/03/19 1240 ADM IN [place] [id number] [place] [id number]
[2019-03-12 12:07] VITALS: BP 180/98
--- NOTE | 2019-03-12 12:24 | NUR ---
I have reviewed this patient and I concur with the Shift Assessment completed by the Licensed Practical Nurse today this shift.
--- NOTE | 2019-03-12 13:12 | NUR ---
B/P NOW 134/78. PT SLEEPING AT THE TIME
[2019-03-12 15:57] VITALS: BP 138/83
[2019-03-12 20:00] VITALS: BP 129/68
--- NOTE | 2019-03-12 20:00 | NUR ---
RESUMING PT CARE. PT LAYING IN BED RESTING COMFORTABLY WITH EYES CLOSED. NO S/S OF DISTRESS NOTED. RESPIRATIONS ARE EVEN AND UNLABORED. BED IN LOW POSITION WITH CALL LIGHT IN REACH. SIDE RAILS UP X 2. WILL CONTINUE TO MONITOR PT AND FOLLOW PLAN OF CARE.
[2019-03-13 04:00] VITALS: BP 168/96
--- NOTE | 2019-03-13 04:41 | NUR ---
PT STATES HE HAS A HEADACHE AND REQUEST SOMETHING FOR PAIN. TYLENOL 650MG TABLET GIVEN PO. WILL CONTINUE TO MONITOR PT AND FOLLOW PLAN OF CARE.
[2019-03-13 05:12] LABS: BASOPHILS 0.5 % (0-2); EOSINOPHILS 3.8 % (0-7); HEMATOCRIT 29.4 % (42.0-54.0); HEMOGLOBIN 9.8 g/dL (13.5-17.5); IMMATURE GRANULOCYTES 0.3 % (0-5); LYMPHOCYTES 28.6 % (15-50); MCH 26.3 pg (26.0-34.0); MCHC 33.3 g/dL (31.0-37.0); MEAN PLATELET VOLUME 9.8 fL (7.4-10.4); MONOCYTES 16.5 % (2-11); NEUTROPHILS 50.3 % (40-80); PLATELET COUNT 185 10x3/uL (130-400); RBC 3.72 10x6/uL (4.20-6.10); RDW 21.3 % (11.5-14.5)
[2019-03-13 05:35] LABS: ALBUMIN 2.4 g/dL (3.4-5.0); ANION GAP 13.7 mmol/L (8-16); BILIRUBIN - TOTAL 0.74 mg/dL (0.2-1.3); CALCIUM 8.8 mg/dL (8.5-10.1); CARBON DIOXIDE 21.8 mmol/L (21.0-32.0); CREATININE - SERUM 1.8 mg/dL (0.6-1.3); POTASSIUM - SERUM 4.5 mmol/L (3.5-5.1); PROTEIN - SERUM 7.4 g/dL (6.4-8.2)
--- NOTE | 2019-03-13 07:22 | NUR ---
AM ROUNDING DONE WITH PATIENT HAVING THE BED COVERS OVER HIS HEAD, REMOVED. OPENS HIS EYES WITH PRODDING. NO IV ACCESS AT THIS TIME. ON ROOM AIR. BED ALARM IS SET. ON EP, K+ IS 4.5. IN REPORT, PATIENT CAN BE INCONTIENT.
[2019-03-13 08:15] VITALS: BP 170/109
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
--- NOTE | 2019-03-13 12:13 | NUR ---
PATIENT AROUSES EASILY AND ASSISTED TO SIDE OF BED FOR LUNCH TRAY. DENIES NEEDS.
--- NOTE | 2019-03-13 12:59 | NUR ---
CLONODINE 0.1 MG GIVEN FOR B/P 177/101.
[2019-03-13 13:09] VITALS: BP 177/101
--- NOTE | 2019-03-13 13:11 | NUR ---
CALLED TO ROOM PER CALL LIGHT. PATIENT IS WANTING SOME DEPENDS. GIVEN. PATIENT HAD A "BLOWOUT" JUST PRIOR TO THIS.
[2019-03-13 15:18] VITALS: BP 162/94
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
--- NOTE | 2019-03-13 19:20 | NUR ---
RESUMING PT CARE. PT LAYING IN BED RESTING COMFORTABLY WITH EYES CLOSED. NO S/S OF DISTRESS NOTED. BED IN LOW POSITION WITH CALL LIGHT IN REACH. WILL CONTINUE TO MONITOR PT AND FOLLOW PLAN OF CARE.
[2019-03-13 20:05] VITALS: BP 137/80
[2019-03-14] VITALS: BP 130/76
--- NOTE | 2019-03-14 03:18 | NUR ---
I have reviewed this patient and I concur with the Shift Assessment completed by the Licensed Practical Nurse today this shift.
[2019-03-14 04:00] VITALS: BP 140/76
[2019-03-14 05:03] LABS: BASOPHILS 0.2 % (0-2); EOSINOPHILS 2.5 % (0-7); HEMATOCRIT 29.4 % (42.0-54.0); HEMOGLOBIN 9.7 g/dL (13.5-17.5); IMMATURE GRANULOCYTES 0.2 % (0-5); LYMPHOCYTES 15.4 % (15-50); MCH 26.3 pg (26.0-34.0); MCV 79.7 fL (80.0-100.0); MEAN PLATELET VOLUME 9.6 fL (7.4-10.4); MONOCYTES 15.4 % (2-11); NEUTROPHILS 66.3 % (40-80); PLATELET COUNT 173 10x3/uL (130-400); RBC 3.69 10x6/uL (4.20-6.10); RDW 21.2 % (11.5-14.5); WBC 4.8 10x3/uL (4.8-10.8)
[2019-03-14 05:14] LABS: ALBUMIN 2.1 g/dL (3.4-5.0); ANION GAP 11.6 mmol/L (8-16); BILIRUBIN - TOTAL 0.46 mg/dL (0.2-1.3); CALCIUM 8.6 mg/dL (8.5-10.1); CARBON DIOXIDE 23.8 mmol/L (21.0-32.0); CREATININE - SERUM 1.8 mg/dL (0.6-1.3); POTASSIUM - SERUM 4.4 mmol/L (3.5-5.1)
--- NOTE | 2019-03-14 06:25 | NUR ---
PT GLUCOSE WAS 64 PER AM LABS. PUDDING AND SNACKS GIVEN AND NOW BLOOD SUGAR IS 98. WILL CONTINUE TO MONITOR PT AND FOLLOW PLAN OF CARE.
--- NOTE | 2019-03-14 07:17 | NUR ---
AM ROUNDING DONE WITH PATIENT HAVING NO NEEDS VOICED. NO IV ACCESS. ON EP, K+ IS 4.4. WILL CONTINUE TO MONITOR.
--- NOTE | 2019-03-14 07:50 | NUR ---
AM B/P MEDS GIVEN EARLY FOR PRESSURE 175/97.
[2019-03-14 07:56] VITALS: BP 175/97
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
[2019-03-14 12:20] VITALS: BP 172/94
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
--- NOTE | 2019-03-14 13:31 | NUR ---
LAYING WITH BLANKET OVER HIS HEAD, I REMOVED IT AND HE DENIES ANY NEEDS AT THIS TIME.
--- NOTE | 2019-03-14 13:39 | NUR ---
PATIENT IS OUT IN THE HALLWAY DRESSED. STATES HE IS GOING HOME, I ASKED THAT HE GO BACK INTO THE ROOM AND WAIT ON THE DOCTOR.
--- NOTE | 2019-03-14 13:50 | NUR ---
NETTA TUTTLE APN AND DR RBOWER IN TO SEE PATIENT.
--- NOTE | 2019-03-14 14:07 | NUR ---
PT EAGER TO DISCHARGE AMBULATES INTO THE HALLWAY ASKING IF WE ARE READY. EXPLAINED AWAITING ORDERS FROM DOCTOR TO SEE IF PATIENT CAN DISCHARGE. REDIRECTED INTO ROOM AT THIS TIME.
--- NOTE | 2019-03-14 14:29 | NUR ---
PT STATES HE IS UNABLE TO FIND HIS PHONE. NURSE BERE LOOKED IN PATIENT ROOM FOR PHONE DID NOT FIND PHONE. CALLED THE KITCHEN TO CHECK AND SEE IF PATIENT PUT PHONE ON MEAL TRAY. KITCHEN DID NOT HAVE ANYONE REPORT A PHONE FROM ROOM 2110. THIS NURSE SEARCHED PT LINENS, BATHROOM, CABINETS, SURROUNDING AREAS IN ROOM. DID NOT FIND PHONE. PT STATED HE DISCONNECTED THE PHONE FROM [employer] SINCE HE COULDN'T FIND THE PHONE. PT STATED HE DID NOT HAVE THE PHONE IN HIS POCKETS AT THE TIME.
--- NOTE | 2019-03-14 14:44 | NUR ---
VERBAL AND WRITTEN DISCHARGE INSTRUCTIONS GIVEN TO PATIENT. PATIENT STILL CAN NOT FIND HIS PHONE, HE ASKED THAT I CALL IT. THE NUMBER HE GAVE ME WAS [phone]. IT WENT TO [facility]. I TOLD HIM THIS. HE IS DISCHARGED VIA WHEELCHAIR TO BUS. HE STATES THAT HE HAS THE TICKETS FOR THE BUS RIDE.
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
--- NOTE | 2019-03-14 15:09 | NUR ---
NURSE ATTEMPTED TO TAKE PT TO BUS STOP. WE GOT OUTSIDE AND BEGAN TO START PUSHING THE WHEELCHAIR UP THE HILL PT STATED "I NEED A PREETI. I'M NOT GOING TO THE BUS STOP." THIS NURSE EXPLAINIED TO PT WE NEEDED TO REACH THE BUS STOP IN THE NEXT 10 MINUTES TO ENSURE HE CAUGHT THE BUS. PT REFUSED AGAIN STATING "I NEED AN PREETI. I DON'T HAVE ANY MONEY FOR THE BUS." ATTEMPTED TO PUSH PT TO BUS STOP. PT PUT HIS FEET DOWN AND STOOD UP IN THE MIDDLE UP BEGAN TO ATTEMPT TO AMBULATE. NURSE ASSISTED PT TO LOBBY TO USE PREETI. PT USED PREETI. PT REFUSED TO GO TO BUS STOP. PT CALLED [facility]. NURSE WAITED WITH PT UNTIL [facility] ARRIVED. PT IN [facility].
== END 2019-03-14 15:00 | disposition home or self-care (01) | DRG 280 ==
LOC: D.ER 19:46 → D.EDHOLD 22:41 → OBSVTIME 22:41 → D.M2 22:41
PROVIDERS: Family Medicine; Internal Medicine Interventional Cardiology; Internal Medicine Nephrology; ADMIT Family Medicine; ATTEND Family Medicine
PROC: B2151ZZ Fluoroscopy of Left Heart using Low Osmolar Contrast (ICD-10-PCS; 2019-03-05)
PROC: 4A023N7 Measurement of Cardiac Sampling and Pressure, Left Heart, Percutaneous Approach (ICD-10-PCS; 2019-03-05)
PROC: B2111ZZ Fluoroscopy of Multiple Coronary Arteries using Low Osmolar Contrast (ICD-10-PCS; principal; 2019-03-05 14:35)
DX: I21.4 Non-ST elevation (NSTEMI) myocardial infarction (principal); I50.43 Acute on chronic combined systolic (congestive) and diastolic (congestive) heart failure; G93.41 Metabolic encephalopathy; N17.9 Acute kidney failure, unspecified; I25.110 Atherosclerotic heart disease of native coronary artery with unstable angina pectoris; N18.3 Chronic kidney disease, stage 3 (moderate); E11.22 Type 2 diabetes mellitus with diabetic chronic kidney disease; E11.65 Type 2 diabetes mellitus with hyperglycemia; I12.9 Hypertensive chronic kidney disease with stage 1 through stage 4 chronic kidney disease, or unspecified chronic kidney disease; D50.9 Iron deficiency anemia, unspecified; E87.6 Hypokalemia; E83.42 Hypomagnesemia; E78.5 Hyperlipidemia, unspecified; J44.9 Chronic obstructive pulmonary disease, unspecified; K21.9 Gastro-esophageal reflux disease without esophagitis; K74.60 Unspecified cirrhosis of liver; B19.20 Unspecified viral hepatitis C without hepatic coma; K59.00 Constipation, unspecified; F10.10 Alcohol abuse, uncomplicated

== ENCOUNTER 2019-03-17 11:33 | Emergency (ER) | payer OTHER, MEDICARE ==
[~2019-03-17 11:33] MED LIST changes: +CYMBALTA30 MG PO; +LYRICA75 MG PO
[2019-03-17 11:39] VITALS: BMI 25.7
[2019-03-17 12:26] LABS: BASOPHILS 0.1 % (0-2); EOSINOPHILS 0.2 % (0-7); HEMATOCRIT 31.8 % (42.0-54.0); HEMOGLOBIN 10.6 g/dL (13.5-17.5); IMMATURE GRANULOCYTES 0.1 % (0-5); LYMPHOCYTES 11.5 % (15-50); MCH 26.4 pg (26.0-34.0); MCHC 33.3 g/dL (31.0-37.0); MCV 79.1 fL (80.0-100.0); MEAN PLATELET VOLUME 10.1 fL (7.4-10.4); MONOCYTES 13.1 % (2-11); PLATELET COUNT 180 10x3/uL (130-400); RBC 4.02 10x6/uL (4.20-6.10); WBC 8.3 10x3/uL (4.8-10.8)
[2019-03-17 12:40] LABS: ALBUMIN 2.5 g/dL (3.4-5.0); ALKALINE PHOSPHATASE 235 U/L (46-116); ALT (SGPT) 18 U/L (10-68); BILIRUBIN - TOTAL 1.44 mg/dL (0.2-1.3); CALC OSMOLALITY 281 mosm/kg (275-300); CALCIUM 8.9 mg/dL (8.5-10.1); CARBON DIOXIDE 23.1 mmol/L (21.0-32.0); CHLORIDE - SERUM 107 mmol/L (98-107); CREATININE - SERUM 1.7 mg/dL (0.6-1.3); POTASSIUM - SERUM 4.4 mmol/L (3.5-5.1); PROTEIN - SERUM 7.7 g/dL (6.4-8.2); SODIUM 139 mmol/L (136-145); UREA NITROGEN 19 mg/dL (7-18); eGFR NON AFRICAN AMERICAN 43 mL/min (90-120)
[2019-03-17 12:41] LABS: GLUCOSE 131 mg/dL (74-106)
[2019-03-17 12:58] LABS: INR 1.18 (0.85-1.17); PROTIME 14.5 SECONDS (11.6-15.0)
[2019-03-17 12:59] LABS: APTT 35.9 SECONDS (22.8-39.4)
[2019-03-17 13:04] LABS: CREATINE KINASE 350 UL (21-232); PRO BNP 10489 pg/mL (0-125)
[2019-03-17 13:07] LABS: TROPONIN-I 0.067 ng/mL (0.000-0.060)
[2019-03-17 13:45] VITALS: BP 192/115
[2019-03-17 14:00] VITALS: BP 200/125
--- NOTE | 2019-03-17 14:00 | NUR ---
ADMINISTERED 2ND NITRO PER DR. PIÑA FOR HTN
[2019-03-17 15:00] VITALS: BP 184/90
--- NOTE | 2019-03-17 15:45 | NUR ---
IV LEVAQUIN 500 FINISHED INFUSING AT THIS TIME.
--- NOTE | 2019-03-17 16:00 | NUR ---
ADMINISTERED 3RD NITRO PER DR. PIÑA FOR HTN
[2019-03-17 16:19] VITALS: BP 190/100
--- NOTE | 2019-03-17 16:55 | NUR ---
ARRANGED TRANSPORT WITH KARIE AT [facility] AT THIS TIME. WAS INFORMED IT WOULD BE APPROX 30-45 MINUTES FOR TRANSFER. PT IN NO DISTRESS AT THIS TIME. WILL CONTINUE TO MONITOR
[2019-03-17 17:06] VITALS: BP 188/100
--- NOTE | 2019-03-17 17:24 | NUR ---
[facility]
== END 2019-03-17 17:26 | disposition other institution (70) ==
LOC: D.ER 11:33 → D.EDHOLD 14:23 → D.ER 14:23
PROVIDERS: Emergency Medicine
DX: R06.02 Shortness of breath (principal); I25.10 Atherosclerotic heart disease of native coronary artery without angina pectoris; J44.9 Chronic obstructive pulmonary disease, unspecified; E11.9 Type 2 diabetes mellitus without complications; I10 Essential (primary) hypertension; J18.9 Pneumonia, unspecified organism

== ENCOUNTER 2019-04-13 06:31 | Emergency (ER) | payer OTHER, MEDICARE ==
[2019-04-13 06:36] VITALS: BMI 23.1
[2019-04-13 07:07] LABS: BASOPHILS 0.4 % (0-2); EOSINOPHILS 0.4 % (0-7); HEMATOCRIT 30.9 % (42.0-54.0); HEMOGLOBIN 10.5 g/dL (13.5-17.5); IMMATURE GRANULOCYTES 0.3 % (0-5); LYMPHOCYTES 11.8 % (15-50); MCH 26.1 pg (26.0-34.0); MCV 76.9 fL (80.0-100.0); MEAN PLATELET VOLUME 10.2 fL (7.4-10.4); MONOCYTES 11.3 % (2-11); NEUTROPHILS 75.8 % (40-80); RBC 4.02 10x6/uL (4.20-6.10); RDW 19.8 % (11.5-14.5); WBC 7.7 10x3/uL (4.8-10.8)
[2019-04-13 07:09] LABS: PLATELET COUNT 320 10x3/uL (130-400)
[2019-04-13 07:49] LABS: ALBUMIN 2.6 g/dL (3.4-5.0); ALKALINE PHOSPHATASE 333 U/L (46-116); ALT (SGPT) 23 U/L (10-68); CALC OSMOLALITY 282 mosm/kg (275-300); CALCIUM 8.6 mg/dL (8.5-10.1); CARBON DIOXIDE 16.4 mmol/L (21.0-32.0); CHLORIDE - SERUM 101 mmol/L (98-107); GLUCOSE 137 mg/dL (74-106); PROTEIN - SERUM 8.3 g/dL (6.4-8.2); SODIUM 135 mmol/L (136-145); UREA NITROGEN 43 mg/dL (7-18); eGFR NON AFRICAN AMERICAN 36 mL/min (90-120)
[2019-04-13 08:15] LABS: CKMB 20.4 U/L (0.0-3.6); PRO BNP 10715 pg/mL (0-125)
[2019-04-13 08:16] LABS: CREATINE KINASE 848 UL (21-232)
[2019-04-13 08:41] LABS: APTT 33.4 SECONDS (22.8-39.4); INR 1.31 (0.85-1.17); PROTIME 15.8 SECONDS (11.6-15.0)
[2019-04-13 12:27] VITALS: BP 176/101
== END 2019-04-17 08:35 | disposition short-term general hospital (02) ==
LOC: D.ER 06:31
PROVIDERS: Family Medicine
DX: R06.02 Shortness of breath (principal); D64.9 Anemia, unspecified; J18.9 Pneumonia, unspecified organism; N28.9 Disorder of kidney and ureter, unspecified

== ENCOUNTER 2019-07-12 19:45 | Emergency (ER) | payer OTHER ==
[~2019-07-12] VITALS: Ht 188 cm; Wt 86.4 kg
[2019-07-12 19:53] VITALS: Ht 188 cm; Wt 86.4 kg
[2019-07-12 20:09] LABS: BASOPHILS 0.3 % (0-2); EOSINOPHILS 0.5 % (0-7); HEMATOCRIT 27.2 % (42.0-54.0); IMMATURE GRANULOCYTES 0.1 % (0-5); LYMPHOCYTES 20.6 % (15-50); MCH 23.8 pg (26.0-34.0); MCHC 33.1 g/dL (31.0-37.0); MEAN PLATELET VOLUME 9.4 fL (7.4-10.4); MONOCYTES 12.1 % (2-11); NEUTROPHILS 66.4 % (40-80); PLATELET COUNT 272 10x3/uL (130-400); RBC 3.78 10x6/uL (4.20-6.10); RDW 18.1 % (11.5-14.5); WBC 7.5 10x3/uL (4.8-10.8)
[2019-07-12 20:16] LABS: APTT 37.1 SECONDS (22.8-39.4); INR 1.35 (0.85-1.17); PROTIME 16.2 SECONDS (11.6-15.0)
[2019-07-12 20:27] LABS: ALBUMIN 2.9 g/dL (3.4-5.0); ALKALINE PHOSPHATASE 359 U/L (46-116); ALT (SGPT) 16 U/L (10-68); BILIRUBIN - TOTAL 1.36 mg/dL (0.2-1.3); CALC OSMOLALITY 283 mosm/kg (275-300); CALCIUM 8.7 mg/dL (8.5-10.1); CARBON DIOXIDE 21.7 mmol/L (21.0-32.0); CHLORIDE - SERUM 104 mmol/L (98-107); CREATININE - SERUM 2.4 mg/dL (0.6-1.3); POTASSIUM - SERUM 4.1 mmol/L (3.5-5.1); PROTEIN - SERUM 8.6 g/dL (6.4-8.2); SODIUM 137 mmol/L (136-145); UREA NITROGEN 46 mg/dL (7-18); eGFR NON AFRICAN AMERICAN 29 mL/min (90-120)
[2019-07-12 20:29] LABS: GLUCOSE 56 mg/dL (74-106)
[2019-07-12 20:44] LABS: CKMB 9.8 U/L (0.0-3.6); CREATINE KINASE 513 UL (21-232); PRO BNP 15439 pg/mL (0-125); TROPONIN-I 0.054 ng/mL (0.000-0.060)
[2019-07-12 20:56] LABS: AMYLASE - SERUM 58 U/L (25-115); LIPASE 210 U/L (73-393)
[2019-07-13 01:35] VITALS: BP 150/92
== END 2019-07-13 01:36 | disposition other institution (70) ==
LOC: D.ER 19:45
PROVIDERS: Family Medicine
DX: I50.9 Heart failure, unspecified (principal); D64.9 Anemia, unspecified; J44.9 Chronic obstructive pulmonary disease, unspecified; E11.65 Type 2 diabetes mellitus with hyperglycemia; N28.9 Disorder of kidney and ureter, unspecified; R53.1 Weakness

== ENCOUNTER 2019-08-25 07:55 | Emergency (ER) | payer OTHER ==
[~2019-08-25] VITALS: Ht 188 cm; Wt 75.5 kg
[2019-08-25 07:59] VITALS: Ht 188 cm; Wt 75.5 kg
[2019-08-25] MEDS ORDERED: ELIQUIS5 MG PO (08:01)
[2019-08-25] MEDS ORDERED: LISINOPRIL10 MG PO (08:01)
[2019-08-25 08:31] LABS: BASOPHILS 0.4 % (0-2); EOSINOPHILS 0.9 % (0-7); HEMATOCRIT 31.1 % (42.0-54.0); IMMATURE GRANULOCYTES 0.2 % (0-5); LYMPHOCYTES 17.1 % (15-50); MCH 23.5 pg (26.0-34.0); MCHC 32.2 g/dL (31.0-37.0); NEUTROPHILS 68.4 % (40-80); RBC 4.26 10x6/uL (4.20-6.10); RDW 19.1 % (11.5-14.5); WBC 5.3 10x3/uL (4.8-10.8)
[2019-08-25 08:32] LABS: PLATELET COUNT 202 10x3/uL (130-400)
[2019-08-25 08:46] LABS: ALKALINE PHOSPHATASE 436 U/L (46-116); ALT (SGPT) 15 U/L (10-68); BILIRUBIN - TOTAL 2.13 mg/dL (0.2-1.3); CALC OSMOLALITY 284 mosm/kg (275-300); CHLORIDE - SERUM 106 mmol/L (98-107); CREATININE - SERUM 1.8 mg/dL (0.6-1.3); POTASSIUM - SERUM 4.2 mmol/L (3.5-5.1); SODIUM 140 mmol/L (136-145); UREA NITROGEN 31 mg/dL (7-18); eGFR NON AFRICAN AMERICAN 40 mL/min (90-120)
[2019-08-25 08:47] LABS: GLUCOSE 88 mg/dL (74-106)
[2019-08-25 08:57] LABS: CKMB 11.7 U/L (0.0-3.6); CREATINE KINASE 400 UL (21-232); PRO BNP 12316 pg/mL (0-125); TROPONIN-I 0.029 ng/mL (0.000-0.060)
[2019-08-25 13:41] VITALS: BP 148/84
[2019-08-26 15:09] LABS: SPE - A/G RATIO 0.6 (0.7-1.7); SPE - ALBUMIN 3.2 g/dL (2.9-4.4); SPE - ALPHA-1 GLOBULIN 0.3 g/dL (0.0-0.4); SPE - ALPHA-2 GLOBULIN 0.9 g/dL (0.4-1.0); SPE - BETA GLOBULIN 1.3 g/dL (0.7-1.3); SPE - GAMMA GLOBULIN 2.9 g/dL (0.4-1.8); SPE - M-SPIKE 0.9 g/dL (Not Observed); SPE - TOTAL PROTEIN 8.6 g/dL (6.0-8.5)
== END 2019-08-25 13:45 | disposition other institution (70) ==
LOC: D.ER 07:55
PROVIDERS: Emergency Medicine
DX: E11.9 Type 2 diabetes mellitus without complications (principal); I10 Essential (primary) hypertension; J44.9 Chronic obstructive pulmonary disease, unspecified; R06.00 Dyspnea, unspecified

== ENCOUNTER 2020-04-16 18:55 | Emergency (ER) | payer OTHER ==
[~2020-04-16] VITALS: Ht 188 cm; Wt 71.4 kg
[~2020-04-16 18:55] MED LIST changes: +ELIQUIS5 MG PO; +LISINOPRIL10 MG PO
[2020-04-16 19:09] VITALS: Ht 188 cm; Wt 71.4 kg
[2020-04-16 20:24] LABS: BASOPHILS 0.3 % (0-2); EOSINOPHILS 0.6 % (0-7); HEMATOCRIT 32.9 % (42.0-54.0); HEMOGLOBIN 10.9 g/dL (13.5-17.5); IMMATURE GRANULOCYTES 0.1 % (0-5); LYMPHOCYTES 15.8 % (15-50); MCH 27.9 pg (26.0-34.0); MCHC 33.1 g/dL (31.0-37.0); MCV 84.4 fL (80.0-100.0); MEAN PLATELET VOLUME 10.3 fL (7.4-10.4); MONOCYTES 9.7 % (2-11); NEUTROPHILS 73.5 % (40-80); WBC 7.2 10x3/uL (4.8-10.8)
[2020-04-16 20:25] LABS: PLATELET COUNT 261 10x3/uL (130-400)
[2020-04-16 20:40] LABS: APTT 31.7 SECONDS (22.8-39.4); INR 1.18 (0.85-1.17)
[2020-04-16 20:42] LABS: D-DIMER-QUANTITATIVE 0.86 ug/mLFEU (0.20-0.54)
[2020-04-16 20:46] LABS: CALC OSMOLALITY 283 mosm/kg (275-300); CALCIUM 8.9 mg/dL (8.5-10.1); CARBON DIOXIDE 22.7 mmol/L (21.0-32.0); CHLORIDE - SERUM 97 mmol/L (98-107); CREATININE - SERUM 3.3 mg/dL (0.6-1.3); GLUCOSE 110 mg/dL (74-106); POTASSIUM - SERUM 3.8 mmol/L (3.5-5.1); SODIUM 134 mmol/L (136-145); UREA NITROGEN 55 mg/dL (7-18); eGFR NON AFRICAN AMERICAN 20 mL/min (90-120)
[2020-04-16 21:06] LABS: ALBUMIN 3.2 g/dL (3.4-5.0); ALKALINE PHOSPHATASE 228 U/L (30-120); ALT (SGPT) 28 U/L (10-68); BILIRUBIN - TOTAL 1.72 mg/dL (0.2-1.3); CKMB 15.7 U/L (0.0-3.6); CREATINE KINASE 676 UL (21-232); MAGNESIUM - SERUM 2.1 mg/dL (1.8-2.4); PROTEIN - SERUM 8.7 g/dL (6.4-8.2)
[2020-04-17 00:17] VITALS: BP 170/98
== END 2020-04-17 00:17 | disposition other institution (70) ==
LOC: D.ER 18:55
PROVIDERS: Emergency Medicine
DX: I50.9 Heart failure, unspecified (principal); I12.9 Hypertensive chronic kidney disease with stage 1 through stage 4 chronic kidney disease, or unspecified chronic kidney disease; E11.22 Type 2 diabetes mellitus with diabetic chronic kidney disease; N18.9 Chronic kidney disease, unspecified; Z86.73 Personal history of transient ischemic attack (TIA), and cerebral infarction without residual deficits; J44.9 Chronic obstructive pulmonary disease, unspecified; F14.10 Cocaine abuse, uncomplicated; R06.00 Dyspnea, unspecified; R06.02 Shortness of breath

== ENCOUNTER 2020-06-16 11:30 | Emergency (ER) | payer OTHER ==
[~2020-06-16] VITALS: Ht 188 cm; Wt 76.4 kg
[2020-06-16 11:42] VITALS: Ht 188 cm; Wt 76.4 kg
[2020-06-16 12:09] VITALS: BP 156/108
[2020-06-16 12:12] LABS: BASOPHILS 0.2 % (0-2); HEMATOCRIT 34.2 % (42.0-54.0); HEMOGLOBIN 11.1 g/dL (13.5-17.5); IMMATURE GRANULOCYTES 0.2 % (0-5); LYMPHOCYTES 19.6 % (15-50); MCH 26.6 pg (26.0-34.0); MCHC 32.5 g/dL (31.0-37.0); MEAN PLATELET VOLUME 9.4 fL (7.4-10.4); MONOCYTES 10.9 % (2-11); NEUTROPHILS 68.1 % (40-80); PLATELET COUNT 307 10x3/uL (130-400); RBC 4.17 10x6/uL (4.20-6.10); RDW 15.2 % (11.5-14.5); WBC 5.1 10x3/uL (4.8-10.8)
[2020-06-16 12:20] LABS: CALC OSMOLALITY 285 mosm/kg (275-300); CALCIUM 8.8 mg/dL (8.5-10.1); CHLORIDE - SERUM 104 mmol/L (98-107); CREATININE - SERUM 3.2 mg/dL (0.6-1.3); GLUCOSE 95 mg/dL (74-106); POTASSIUM - SERUM 4.2 mmol/L (3.5-5.1); SODIUM 137 mmol/L (136-145); UREA NITROGEN 47 mg/dL (7-18); eGFR NON AFRICAN AMERICAN 21 mL/min (90-120)
[2020-06-16 12:36] LABS: APTT 32.1 SECONDS (22.8-39.4); INR 1.2 (0.85-1.17); PROTIME 15.1 SECONDS (11.6-15.0)
[2020-06-16 12:52] LABS: ALBUMIN 2.7 g/dL (3.4-5.0); ALKALINE PHOSPHATASE 304 U/L (30-120); ALT (SGPT) 30 U/L (10-68); BILIRUBIN - TOTAL 0.66 mg/dL (0.2-1.3); CKMB 22.8 U/L (0.0-3.6); MAGNESIUM - SERUM 2.7 mg/dL (1.8-2.4)
[2020-06-16 12:54] LABS: CREATINE KINASE 1225 UL (21-232)
[2020-06-16 12:57] LABS: TROPONIN-I 0.138 ng/mL (0.000-0.060)
== END 2020-06-16 12:32 | disposition left against medical advice (07) ==
LOC: D.ER 11:30
PROVIDERS: Family Medicine
DX: Z53.29 Procedure and treatment not carried out because of patient's decision for other reasons (principal); R21 Rash and other nonspecific skin eruption; I10 Essential (primary) hypertension; E11.9 Type 2 diabetes mellitus without complications; Z86.73 Personal history of transient ischemic attack (TIA), and cerebral infarction without residual deficits; J44.9 Chronic obstructive pulmonary disease, unspecified; Z79.4 Long term (current) use of insulin